=== PATIENT | female | born 1960 | race African-American/Black ===

== ENCOUNTER 2016-09-15 10:55 | Emergency (ER) | payer MEDICARE, OTHER ==
[2016-09-15] VITALS (7 sets, daily range): BP systolic 141–156; BP diastolic 79–98
[~2016-09-15] VITALS: Ht 157.5 cm; Wt 57.5 kg
[~2016-09-15 10:55] MED LIST: AMLO10TA80 PO; BENA40TA3 PO; CALC0.253 PO; CARV3.1242 PO; OMEP20CA10 PO; P20 PO; QUET25TA PO; [UNRECOGNIZED DRUG - CODE] PO
[2016-09-15 11:57] LABS: PARTIAL THROMBOPLASTIN TIME 25.7 sec (24.0-34.0); PROTHROMBIN TIME 10.8 sec
[2016-09-15 12:00] LABS: ALANINE AMINOTRANSFERASE 20 IU/L (13-61); ALBUMIN 3.8 g/dL (3.4-5.0); ANION GAP 19; CALCIUM 9.3 mg/dL (8.5-10.1); CARBON DIOXIDE 24 mEq/L (21-32); CHLORIDE 103 mEq/L (98-107); INDEX HEMOLYSI 1 (1-3); INDEX ICTERIC 1 (1-4); INDEX LIPEMIC 1 (1-3); UREA NITROGEN BLOOD 56 mg/dL (7-21); eGFR 5 mL/min (>60)
[2016-09-15 12:01] LABS: HCG SCREEN NEGATIVE
[2016-09-15 12:03] LABS: BASOPHILS % 1.4 % (0.0-2.0); EOSINOPHILS % 0.9 % (0.0-5.0); HEMATOCRIT. 37.4 % (36.0-48.0); LYMPHOCYTES % 27.4 % (20.0-50.0); MEAN CORPUSCULAR VOLUME 87.7 fL (81.0-99.0); MEAN PLATELET VOLUME 8.2 fl (7.4-10.4); MONOCYTES % 9.8 % (2.0-8.0); NEUTROPHILS % 60.5 % (40.0-76.0); PLATELET 129 x1000/uL (130-400); RED BLOOD CELL COUNT 4.26 mill/uL (4.2-5.4); RED CELL DISTRIBUTION WIDTH 15.9 % (11.6-14.6); WHITE BLOOD COUNT 7.6 x1000/uL (4.5-11.0)
[2016-09-15] MEDS ORDERED: CEFAZOLIN 1000MG PREMIX 50 ML IV NR (14:45)
[2016-09-15] MEDS ORDERED: FENTANYL CITRATE/PF 50MCG/ML 2ML VIAL IV NR (15:22)
== END 2016-09-15 17:36 | disposition home or self-care (01) ==
LOC: ER 12:32
DX: T85.621A Displacement of intraperitoneal dialysis catheter, initial encounter (principal); R00.0 Tachycardia, unspecified; Y82.8 Other medical devices associated with adverse incidents; Y92.098 Other place in other non-institutional residence as the place of occurrence of the external cause; I12.0 Hypertensive chronic kidney disease with stage 5 chronic kidney disease or end stage renal disease; N18.6 End stage renal disease; Z99.2 Dependence on renal dialysis; M32.9 Systemic lupus erythematosus, unspecified
CPT/HCPCS: 36415; 36558; 71010; 76937; 77001; 80053; 84703; 85025; 85610; 85730; 96374; 99285; C1750; C1887

== ENCOUNTER 2016-10-27 05:24 | Inpatient (IN) | payer MEDICARE, OTHER ==
[2016-10-27] VITALS (8 sets, daily range): BP systolic 144–167; BP diastolic 98–117
[~2016-10-27] VITALS: Ht 157.5 cm; Wt 57.6 kg
[2016-10-27] MEDS ORDERED: NITROGLYCERIN OINT 1GM/INCH UDPKT TD ONE (06:30)
[2016-10-27] MEDS ORDERED: FUROSEMIDE 40MG/4ML VIAL IVP ONE (06:30)
[2016-10-27] MEDS ORDERED: ASPIRIN 81MG TABLET PO ONE (06:30)
[2016-10-27 06:43] LABS: PARTIAL THROMBOPLASTIN TIME 31.3 sec (24.0-34.0); PROTHROMBIN TIME 10.4 sec
[2016-10-27 06:44] LABS: EOSINOPHILS % 0.7 % (0.0-5.0); HEMATOCRIT. 22.8 % (36.0-48.0); HEMOGLOBIN. 7.3 g/dL (12.0-16.0); LYMPHOCYTES % 20.6 % (20.0-50.0); MEAN CORPUSCULAR HEMOGLOBIN 27.3 pg (28.0-32.0); MEAN CORPUSCULAR HGB CONC 32.1 g/dL (31.0-37.0); MEAN PLATELET VOLUME 7.9 fl (7.4-10.4); NEUTROPHILS % 68.7 % (40.0-76.0); PLATELET 93 x1000/uL (130-400); RED BLOOD CELL COUNT 2.68 mill/uL (4.2-5.4); RED CELL DISTRIBUTION WIDTH 17.4 % (11.6-14.6); WHITE BLOOD COUNT 5.9 x1000/uL (4.5-11.0)
[2016-10-27 06:52] LABS: ALANINE AMINOTRANSFERASE 23 IU/L (13-61); ALBUMIN 3.1 g/dL (3.4-5.0); ANION GAP 27; CALCIUM 8.5 mg/dL (8.5-10.1); CARBON DIOXIDE 13 mEq/L (21-32); CHLORIDE 102 mEq/L (98-107); INDEX HEMOLYSI 1 (1-3); INDEX ICTERIC 1 (1-4); INDEX LIPEMIC 1 (1-3); TROPONIN I 0.09 ng/mL (0.00-0.04); eGFR 3 mL/min (>60)
[2016-10-27 07:04] LABS: NT PRO B-TYPE NATRIURETIC PEP 62956 pg/mL (5-125)
[2016-10-27 07:11] LABS: UREA NITROGEN BLOOD 131 mg/dL (7-21)
[2016-10-27] MEDS: CARVEDILOL 3.125 MG TABLET PO SCH (20:00)
[2016-10-27] MEDS ORDERED: IPRATROPIUM/ALBUTEROL 0.5-3(2.5)MG/3ML NEB HHN PRN (22:00)
[2016-10-28] VITALS (7 sets, daily range): BP systolic 124–176; BP diastolic 81–113
[2016-10-28] MEDS: IPRATROPIUM/ALBUTEROL 0.5-3(2.5)MG/3ML NEB HHN SCH ×5 (00:25→21:01)
[2016-10-28] MEDS ORDERED: ACETAMINOPHEN 325MG TABLET PO PRN (00:30)
[2016-10-28] MEDS ORDERED: ZOLPIDEM TARTRATE 5MG TABLET PO PRN (00:30)
[2016-10-28] MEDS: GUAIFENESIN-DM 200MG-20MG/10ML UDC PO PRN ×3 (00:48→20:48)
[2016-10-28] MEDS: CLONIDINE 0.1MG TABLET PO PRN ×3 (00:52→20:45)
[2016-10-28] MEDS: ACETAMINOPHEN 325MG TABLET PO PRN ×2 (05:18→20:55)
[2016-10-28] MEDS: OMEPRAZOLE 20MG CAPSULE EXTENDED RELEASE PO SCH (06:53)
[2016-10-28] MEDS: CALCIUM CARBONATE 1250MG TABLET (500MG ELEMENTAL CALCIUM) PO SCH ×2 (08:23→17:31)
[2016-10-28] MEDS: BENAZEPRIL 20MG TABLET PO SCH (08:24)
[2016-10-28] MEDS: AMLODIPINE 10MG TABLET PO SCH (08:24)
[2016-10-28] MEDS: PREDNISONE 5MG TABLET PO SCH (08:24)
[2016-10-28] MEDS: CALCITRIOL 0.25MCG CAPSULE PO SCH (08:24)
[2016-10-28] MEDS: CARVEDILOL 3.125 MG TABLET PO SCH ×2 (08:24→17:31)
[2016-10-28] MEDS ORDERED: CALCIUM GLUCONATE 500 MG PO SCH (09:00)
[2016-10-28] MEDS ORDERED: MEDICATION NOT ON FORMULARY EA (Benazepril Hcl 40 MG) PO SCH (09:00)
[2016-10-28] MEDS ORDERED: DOCUSATE SODIUM 250MG CAPSULE PO SCH (09:10)
[2016-10-28 09:51] LABS: BASOPHILS % 0.5 % (0.0-2.0); EOSINOPHILS % 1.1 % (0.0-5.0); HEMATOCRIT. 29.3 % (36.0-48.0); HEMOGLOBIN. 9.8 g/dL (12.0-16.0); LYMPHOCYTES % 17.1 % (20.0-50.0); MEAN CORPUSCULAR HEMOGLOBIN 28.1 pg (28.0-32.0); MEAN CORPUSCULAR HGB CONC 33.6 g/dL (31.0-37.0); MEAN CORPUSCULAR VOLUME 83.7 fL (81.0-99.0); MEAN PLATELET VOLUME 7.2 fl (7.4-10.4); MONOCYTES % 8.9 % (2.0-8.0); NEUTROPHILS % 72.4 % (40.0-76.0); PLATELET 72 x1000/uL (130-400); RED CELL DISTRIBUTION WIDTH 16.2 % (11.6-14.6); WHITE BLOOD COUNT 6.9 x1000/uL (4.5-11.0)
[2016-10-28 10:12] LABS: CALCIUM 8.3 mg/dL (8.5-10.1); T4 FREE 0.9 ng/dL (0.76-1.46)
[2016-10-29] VITALS: BP 145/82
[2016-10-29] MEDS: IPRATROPIUM/ALBUTEROL 0.5-3(2.5)MG/3ML NEB HHN SCH ×7 (00:25→23:37)
[2016-10-29] MEDS: GUAIFENESIN-DM 200MG-20MG/10ML UDC PO PRN ×3 (03:35→21:21)
[2016-10-29 04:00] VITALS: BP 164/92
[2016-10-29] MEDS: OMEPRAZOLE 20MG CAPSULE EXTENDED RELEASE PO SCH (06:25)
[2016-10-29] MEDS: CLONIDINE 0.1MG TABLET PO PRN ×2 (06:25→13:59)
[2016-10-29 07:47] LABS: BASOPHILS % 0.6 % (0.0-2.0); EOSINOPHILS % 0.8 % (0.0-5.0); HEMATOCRIT. 27.3 % (36.0-48.0); LYMPHOCYTES % 22.2 % (20.0-50.0); MEAN CORPUSCULAR HEMOGLOBIN 28.1 pg (28.0-32.0); MEAN CORPUSCULAR HGB CONC 33.1 g/dL (31.0-37.0); MEAN CORPUSCULAR VOLUME 84.9 fL (81.0-99.0); MEAN PLATELET VOLUME 7.6 fl (7.4-10.4); MONOCYTES % 12.7 % (2.0-8.0); NEUTROPHILS % 63.7 % (40.0-76.0); PLATELET 64 x1000/uL (130-400); RED BLOOD CELL COUNT 3.22 mill/uL (4.2-5.4); RED CELL DISTRIBUTION WIDTH 15.9 % (11.6-14.6); WHITE BLOOD COUNT 6.9 x1000/uL (4.5-11.0)
[2016-10-29 08:00] VITALS: BP 150/95
[2016-10-29 08:08] LABS: CALCIUM 8.9 mg/dL (8.5-10.1)
[2016-10-29] MEDS: BENAZEPRIL 20MG TABLET PO SCH (08:37)
[2016-10-29] MEDS: CARVEDILOL 3.125 MG TABLET PO SCH ×2 (08:37→17:50)
[2016-10-29] MEDS: AMLODIPINE 10MG TABLET PO SCH (08:38)
[2016-10-29] MEDS: CALCIUM CARBONATE 1250MG TABLET (500MG ELEMENTAL CALCIUM) PO SCH ×2 (08:38→17:51)
[2016-10-29] MEDS: CALCITRIOL 0.25MCG CAPSULE PO SCH (08:39)
[2016-10-29] MEDS: PREDNISONE 5MG TABLET PO SCH (08:47)
[2016-10-29 08:50] LABS: PHOSPHORUS 8.2 mg/dL (2.5-4.9)
[2016-10-29 12:00] VITALS: BP 162/105
[2016-10-29] MEDS ORDERED: HEPARIN SODIUM 1,000 UNIT/1ML VIAL IV SCH (13:00)
[2016-10-29 16:00] VITALS: BP 150/105
[2016-10-29 20:00] VITALS: BP 154/92
[2016-10-29] MEDS: ATORVASTATIN CALCIUM 10MG TABLET PO SCH (21:21)
[2016-10-30] VITALS (8 sets, daily range): BP systolic 135–180; BP diastolic 87–108
[2016-10-30] MEDS: GUAIFENESIN-DM 200MG-20MG/10ML UDC PO PRN (01:06)
[2016-10-30] MEDS: CLONIDINE 0.1MG TABLET PO PRN ×2 (01:06→17:41)
[2016-10-30] MEDS: IPRATROPIUM/ALBUTEROL 0.5-3(2.5)MG/3ML NEB HHN SCH ×5 (04:33→19:57)
[2016-10-30 06:17] LABS: BASOPHILS % 0.7 % (0.0-2.0); EOSINOPHILS % 1.4 % (0.0-5.0); HEMATOCRIT. 29.3 % (36.0-48.0); HEMOGLOBIN. 9.8 g/dL (12.0-16.0); LYMPHOCYTES % 23.8 % (20.0-50.0); MEAN CORPUSCULAR HEMOGLOBIN 28.1 pg (28.0-32.0); MEAN CORPUSCULAR HGB CONC 33.5 g/dL (31.0-37.0); MEAN CORPUSCULAR VOLUME 84.1 fL (81.0-99.0); MEAN PLATELET VOLUME 7.7 fl (7.4-10.4); MONOCYTES % 12.3 % (2.0-8.0); NEUTROPHILS % 61.8 % (40.0-76.0); PLATELET 62 x1000/uL (130-400); RED BLOOD CELL COUNT 3.48 mill/uL (4.2-5.4); RED CELL DISTRIBUTION WIDTH 15.8 % (11.6-14.6); WHITE BLOOD COUNT 7.8 x1000/uL (4.5-11.0)
[2016-10-30] MEDS: SEVELAMER CARBONATE 800 MG TABLET PO SCH ×3 (07:50→17:40)
[2016-10-30 08:14] LABS: CALCIUM 8.8 mg/dL (8.5-10.1); PHOSPHORUS 5.5 mg/dL (2.5-4.9)
[2016-10-30] MEDS: FAMOTIDINE 20MG TABLET PO SCH (09:00)
[2016-10-30] MEDS: CARVEDILOL 3.125 MG TABLET PO SCH (09:00)
[2016-10-30] MEDS: CALCIUM CARBONATE 1250MG TABLET (500MG ELEMENTAL CALCIUM) PO SCH ×2 (09:00→17:41)
[2016-10-30] MEDS: BENAZEPRIL 20MG TABLET PO SCH (09:00)
[2016-10-30] MEDS: AMLODIPINE 10MG TABLET PO SCH ×2 (09:00→17:41)
[2016-10-30] MEDS: PREDNISONE 5MG TABLET PO SCH (09:00)
[2016-10-30] MEDS: CALCITRIOL 0.25MCG CAPSULE PO SCH (09:00)
[2016-10-30] MEDS ORDERED: SODIUM CHLORIDE 0.9% 10ML VIAL ONE (14:34)
[2016-10-30] MEDS ORDERED: IOHEXOL-350 100 ML BOTTLE ONE (14:34)
[2016-10-30] MEDS: ACETAMINOPHEN 325MG TABLET PO PRN (19:58)
[2016-10-30] MEDS: CARVEDILOL 6.25 MG TABLET PO SCH (21:07)
[2016-10-30] MEDS: ATORVASTATIN CALCIUM 10MG TABLET PO SCH (21:07)
[2016-10-31] VITALS: BP 143/97
[2016-10-31] MEDS: IPRATROPIUM/ALBUTEROL 0.5-3(2.5)MG/3ML NEB HHN SCH ×5 (00:19→16:00)
[2016-10-31 04:00] VITALS: BP 144/97
[2016-10-31] MEDS: ACETAMINOPHEN 325MG TABLET PO PRN (04:16)
[2016-10-31 08:00] VITALS: BP 146/91
[2016-10-31] MEDS: CALCIUM CARBONATE 1250MG TABLET (500MG ELEMENTAL CALCIUM) PO SCH (08:56)
[2016-10-31] MEDS: PREDNISONE 5MG TABLET PO SCH (08:56)
[2016-10-31] MEDS: CALCITRIOL 0.25MCG CAPSULE PO SCH (08:56)
[2016-10-31] MEDS: SEVELAMER CARBONATE 800 MG TABLET PO SCH ×2 (08:56→13:30)
[2016-10-31] MEDS: FAMOTIDINE 20MG TABLET PO SCH (08:56)
[2016-10-31] MEDS: BENAZEPRIL 20MG TABLET PO SCH (08:57)
[2016-10-31] MEDS: CARVEDILOL 6.25 MG TABLET PO SCH (08:57)
[2016-10-31] MEDS: AMLODIPINE 10MG TABLET PO SCH (09:10)
[2016-10-31 12:00] VITALS: BP 140/93
[2016-10-31 16:00] VITALS: BP 140/93
== END 2016-10-31 17:38 | disposition home or self-care (01) | DRG 291 ==
LOC: ER 05:26 → 6WST 08:51
PROVIDERS: ADMIT Internal Medicine; ATTEND Internal Medicine
PROC: 30233N1 Transfusion of Nonautologous Red Blood Cells into Peripheral Vein, Percutaneous Approach (ICD-10-PCS; 2016-10-27)
PROC: 5A1D60Z (ICD-10-PCS; 2016-10-27)
PROC: 02HV33Z Insertion of Infusion Device into Superior Vena Cava, Percutaneous Approach (ICD-10-PCS; principal; 2016-10-30)
PROC: B548ZZA Ultrasonography of Superior Vena Cava, Guidance (ICD-10-PCS; 2016-10-30)
DX: I13.2 Hypertensive heart and chronic kidney disease with heart failure and with stage 5 chronic kidney disease, or end stage renal disease (principal); I50.43 Acute on chronic combined systolic (congestive) and diastolic (congestive) heart failure; N18.6 End stage renal disease; J96.20 Acute and chronic respiratory failure, unspecified whether with hypoxia or hypercapnia; J44.1 Chronic obstructive pulmonary disease with (acute) exacerbation; E87.2 Acidosis; I42.0 Dilated cardiomyopathy; E87.5 Hyperkalemia; E87.70 Fluid overload, unspecified; D64.9 Anemia, unspecified; I70.203 Unspecified atherosclerosis of native arteries of extremities, bilateral legs; D69.6 Thrombocytopenia, unspecified; E78.5 Hyperlipidemia, unspecified; M32.14 Glomerular disease in systemic lupus erythematosus; I36.1 Nonrheumatic tricuspid (valve) insufficiency; Z79.899 Other long term (current) drug therapy; Z87.891 Personal history of nicotine dependence; Z91.19 Patient's noncompliance with other medical treatment and regimen; Z91.15 Patient's noncompliance with renal dialysis; Z99.2 Dependence on renal dialysis
CPT/HCPCS: 36415; 36569; 71010; 75635; 76937; 77001; 80048; 80053; 82962; 83735; 83880; 83970; 84100; 84439; 84484; 85025; 85610; 85730; 86850; 86900; 86920; 93005; 93306; 93923; 93970; 94640; 94664; 96374; 99285; A4216; C1725; J1644; J1940; J7030; J7040; J7512; J7620; P9016; Q9967

== ENCOUNTER 2016-11-12 08:11 | Day surgery (SDC) | payer MEDICARE, OTHER ==
[~2016-11-12 08:11] MED LIST changes: -AMLO10TA80 PO; -BENA40TA3 PO; -CARV3.1242 PO; -P20 PO; -QUET25TA PO
[2016-11-12] MEDS ORDERED: ATOR10TA PO (09:14)
[2016-11-12] MEDS ORDERED: AMLO10TA80 PO (09:14)
[2016-11-12] MEDS ORDERED: BENA40TA3 PO (09:14)
[2016-11-12] MEDS ORDERED: PRED5TAB48 PO (09:14)
[2016-11-12] MEDS ORDERED: TRIA1KIT13 TP (09:14)
[2016-11-12] MEDS ORDERED: ALBU18HF2 IH (09:14)
[2016-11-12] MEDS ORDERED: CALC668T PO (09:14)
[2016-11-12] MEDS ORDERED: GUAI1TBM14 PO (09:14)
[2016-11-12] MEDS ORDERED: COR3 PO (09:14)
[2016-11-12] MEDS ORDERED: IOHEXOL-300 100 ML BOTTLE ONE (10:39)
[2016-11-12] MEDS ORDERED: MIDAZOLAM HCL 2 MG/2 ML VIAL ONE (10:40)
[2016-11-12] MEDS ORDERED: FENTANYL CITRATE/PF 50MCG/ML 2ML VIAL ONE (10:40)
[2016-11-12] MEDS ORDERED: LIDOCAINE HCL 1% 20ML VIAL (Pyxis) INJ ONE (10:40)
[2016-11-12] MEDS ORDERED: HYDROMORPHONE HCL/PF 2MG/ML (OR) ONE (10:56)
[2016-11-12] MEDS ORDERED: ONDANSETRON HCL 4MG/2ML VIAL IV PRN (11:15)
[2016-11-12] MEDS ORDERED: ACETAMINOPHEN 325MG TABLET PO PRN (11:15)
== END 2016-11-12 16:00 | disposition home or self-care (01) ==
LOC: CCL 08:11
PROVIDERS: ATTEND Specialist
DX: I25.10 Atherosclerotic heart disease of native coronary artery without angina pectoris (principal); J44.9 Chronic obstructive pulmonary disease, unspecified; N18.6 End stage renal disease; I50.9 Heart failure, unspecified; E78.5 Hyperlipidemia, unspecified; I10 Essential (primary) hypertension; I34.0 Nonrheumatic mitral (valve) insufficiency
CPT/HCPCS: 93458; C1760; C1769; C1887; C1893; J1170; J1644; J2250; J3010; J3490; Q9967

== ENCOUNTER 2016-11-26 10:09 | Inpatient (IN) | payer MEDICARE, OTHER ==
[2016-11-26] VITALS (11 sets, daily range): BP systolic 155–175; BP diastolic 74–118
[~2016-11-26] VITALS: Ht 154.9 cm; Wt 62.8 kg
[~2016-11-26 10:09] MED LIST changes: +ALBU18HF2 IH; +AMLO10TA80 PO; +ATOR10TA PO; +BENA40TA3 PO; +CALC668T PO; +COR3 PO; +GUAI1TBM14 PO; +PRED5TAB48 PO; +TRIA1KIT13 TP; -[UNRECOGNIZED DRUG - CODE] PO
[2016-11-26] MEDS ORDERED: HEPARIN SODIUM 1,000 UNIT/1ML VIAL IV ONE (11:31)
[2016-11-26] MEDS ORDERED: IOVERSOL 240MG/ML 100ML BOTTLE IV ONE (11:31)
[2016-11-26] MEDS ORDERED: HYDROMORPHONE HCL/PF 2MG/ML (OR) ONE (12:06)
[2016-11-26] MEDS ORDERED: ASPIRIN 325MG TABLET ONE (12:28)
[2016-11-26] MEDS ORDERED: CLOPIDOGREL 75MG TABLET ONE ×2 (12:28→12:30)
[2016-11-26] MEDS ORDERED: ACETAMINOPHEN 325MG TABLET PO PRN (12:45)
[2016-11-26] MEDS ORDERED: ATROPINE SULFATE 1MG/10ML SYR IV PRN (12:45)
[2016-11-26] MEDS ORDERED: CLOPIDOGREL 75MG TABLET PO ONE (12:45)
[2016-11-26] MEDS: ENALAPRIL 2.5MG/2ML VIAL 2ML IV SCH ×3 (14:33→22:07)
[2016-11-26] MEDS ORDERED: BENAZEPRIL 20MG TABLET PO SCH (17:15)
[2016-11-26] MEDS ORDERED: LOSARTAN POTASSIUM 50 MG TABLET PO SCH (17:15)
[2016-11-26] MEDS ORDERED: ATORVASTATIN CALCIUM 10MG TABLET PO SCH (21:00)
[2016-11-26] MEDS: HYDRALAZINE HCL 25MG TABLET PO SCH (21:07)
[2016-11-26] MEDS ORDERED: GUAIFENESIN 200MG/10ML SUGAR FREE UDC PO PRN (22:00)
[2016-11-27] VITALS (9 sets, daily range): BP systolic 125–185; BP diastolic 48–105
[2016-11-27] MEDS: IPRATROPIUM/ALBUTEROL 0.5-3(2.5)MG/3ML NEB HHN PRN ×3 (00:58→12:24)
[2016-11-27] MEDS: ENALAPRIL 2.5MG/2ML VIAL 2ML IV SCH ×2 (06:16→12:00)
[2016-11-27] MEDS: HYDRALAZINE HCL 25MG TABLET PO SCH ×2 (06:16→14:26)
[2016-11-27 06:26] LABS: BASOPHILS % 0.9 % (0.0-2.0); EOSINOPHILS % 1.1 % (0.0-5.0); HEMATOCRIT. 24.2 % (36.0-48.0); HEMOGLOBIN. 8.1 g/dL (12.0-16.0); LYMPHOCYTES % 22.2 % (20.0-50.0); MEAN CORPUSCULAR HEMOGLOBIN 28.9 pg (28.0-32.0); MEAN PLATELET VOLUME 7.9 fl (7.4-10.4); MONOCYTES % 10.9 % (2.0-8.0); NEUTROPHILS % 64.9 % (40.0-76.0); PLATELET 135 x1000/uL (130-400); RED BLOOD CELL COUNT 2.82 mill/uL (4.2-5.4); RED CELL DISTRIBUTION WIDTH 18.1 % (11.6-14.6)
[2016-11-27] MEDS ORDERED: OMEPRAZOLE 20MG CAPSULE EXTENDED RELEASE PO SCH (06:50)
[2016-11-27] MEDS ORDERED: CLOPIDOGREL 75MG TABLET PO SCH (09:00)
[2016-11-27] MEDS ORDERED: AMLODIPINE 10MG TABLET PO SCH (09:00)
[2016-11-27] MEDS ORDERED: ASPIRIN 325MG TABLET PO SCH (09:00)
[2016-11-27] MEDS ORDERED: CALCITRIOL 0.25MCG CAPSULE PO SCH (09:00)
[2016-11-27] MEDS ORDERED: CARVEDILOL 3.125 MG TABLET PO SCH (09:00)
[2016-11-27] MEDS ORDERED: ENALAPRIL 1.25MG/ML VIAL 1ML IV SCH (14:47)
== END 2016-11-27 15:55 | disposition home or self-care (01) | DRG 270 ==
LOC: CCL 10:09 → 3WST 10:10
PROVIDERS: ADMIT Specialist; ATTEND Specialist
PROC: 04CK3ZZ Extirpation of Matter from Right Femoral Artery, Percutaneous Approach (ICD-10-PCS; principal; 2016-11-26)
PROC: 047K3DZ Dilation of Right Femoral Artery with Intraluminal Device, Percutaneous Approach (ICD-10-PCS; 2016-11-27)
PROC: 5A1D00Z (ICD-10-PCS; 2016-11-27)
PROC: 30233N1 Transfusion of Nonautologous Red Blood Cells into Peripheral Vein, Percutaneous Approach (ICD-10-PCS; 2016-11-27)
DX: I70.201 Unspecified atherosclerosis of native arteries of extremities, right leg (principal); N18.6 End stage renal disease; I42.0 Dilated cardiomyopathy; I12.0 Hypertensive chronic kidney disease with stage 5 chronic kidney disease or end stage renal disease; I69.351 Hemiplegia and hemiparesis following cerebral infarction affecting right dominant side; N25.81 Secondary hyperparathyroidism of renal origin; I73.9 Peripheral vascular disease, unspecified; I25.10 Atherosclerotic heart disease of native coronary artery without angina pectoris; E78.5 Hyperlipidemia, unspecified; K57.90 Diverticulosis of intestine, part unspecified, without perforation or abscess without bleeding; J44.9 Chronic obstructive pulmonary disease, unspecified; I34.0 Nonrheumatic mitral (valve) insufficiency; M32.9 Systemic lupus erythematosus, unspecified; I27.2 Other secondary pulmonary hypertension; D53.9 Nutritional anemia, unspecified; Z98.891 History of uterine scar from previous surgery; Z87.891 Personal history of nicotine dependence; Z99.2 Dependence on renal dialysis; Z79.899 Other long term (current) drug therapy
CPT/HCPCS: 36415; 37227; 75710; 80048; 85025; 85347; 86850; 86900; 86920; 94640; 94664; C1725; C1760; C1769; C1885; C1893; C1894; J1170; J1644; J3490; J7040; J7050; J7620; L1830; P9016; Q9967

== ENCOUNTER → 2017-03-25 | Day surgery (SDC) | payer MEDICARE, OTHER ==
[~2017-03-25] VITALS: Ht 160 cm; Wt 58.0 kg
[~2017-03-25] MED LIST changes: +ASPI-1159 PO; +CLOP75TA16 PO; +CODE473S5 PO; +QUET25TA PO
[2017-03-25 11:33] LABS: HEMATOCRIT. 38.1 % (36.0-48.0); HEMOGLOBIN. 12.4 g/dL (12.0-16.0); MEAN CORPUSCULAR HEMOGLOBIN 29.1 pg (28.0-32.0); MEAN CORPUSCULAR VOLUME 89.3 fL (81.0-99.0); PLATELET 120 x1000/uL (130-400); RED BLOOD CELL COUNT 4.27 mill/uL (4.2-5.4); RED CELL DISTRIBUTION WIDTH 17.6 % (11.6-14.6)
[2017-03-25 11:38] LABS: INR 1.2; PARTIAL THROMBOPLASTIN TIME 25.9 sec (23.4-31.0)
[2017-03-25 12:35] LABS: PLATELET ESTIMATE SLIGHTLY DECREASED
== END | disposition home or self-care (01) ==
LOC: OR 10:14
PROVIDERS: ATTEND Surgery Vascular Surgery
DX: N18.6 End stage renal disease (principal); Z53.9 Procedure and treatment not carried out, unspecified reason
CPT/HCPCS: 36415; 80048; 85025; 85610; 85730; 93005

== ENCOUNTER 2017-03-27 15:39 | Inpatient (IN) | payer MEDICARE, OTHER ==
[2017-03-27] VITALS: BP 164/100
[~2017-03-27] VITALS: Ht 157.5 cm; Wt 57.6 kg
[2017-03-27] MEDS ORDERED: METHYLPREDNISOLONE SOD SUCC 125 MG/2 ML VIAL IV STA (16:12)
[2017-03-27] MEDS ORDERED: IPRATROPIUM BROMIDE (0.02%) 0.5MG/2.5ML NEB HHN STA (16:12)
[2017-03-27] MEDS ORDERED: ALBUTEROL (0.083%) 2.5MG/3ML NEB HHN STA (16:12)
[2017-03-27 18:34] LABS: HEMATOCRIT. 38.3 % (36.0-48.0); HEMOGLOBIN. 12.3 g/dL (12.0-16.0); MEAN CORPUSCULAR HEMOGLOBIN 29.3 pg (28.0-32.0); MEAN PLATELET VOLUME 10.4 fl (7.4-10.4); PLATELET 117 x1000/uL (130-400); RED BLOOD CELL COUNT 4.21 mill/uL (4.2-5.4); RED CELL DISTRIBUTION WIDTH 17.9 % (11.6-14.6)
[2017-03-27 18:37] LABS: CHLORIDE 102 mEq/L (98-107)
[2017-03-27 18:39] LABS: INR 1.3; PROTHROMBIN TIME 13.2 sec (9.4-11.6)
[2017-03-27 18:42] LABS: CARBON DIOXIDE 26 mEq/L (21-32)
[2017-03-27] MEDS ORDERED: FUROSEMIDE 40MG/4ML VIAL IVP ONE (19:00)
[2017-03-27 19:18] LABS: NUCLEATED RED BLOOD CELLS 1 /100 WBC; PLATELET ESTIMATE DECREASED
[2017-03-27] MEDS ORDERED: ASPIRIN 81MG TABLET PO ONE (20:15)
[2017-03-27] MEDS ORDERED: NITROGLYCERIN 0.1MG/HR PATCH TOP ONE (20:15)
[2017-03-28] VITALS: BP 164/100
[2017-03-28] MEDS ORDERED: ACETAMINOPHEN 325MG TABLET PO PRN (01:15)
[2017-03-28] MEDS ORDERED: MEDICATION NOT ON FORMULARY EA (Benazepril Hcl 40 MG) PO SCH (01:30)
[2017-03-28] MEDS ORDERED: GUAIFENESIN-DM 200MG-20MG/10ML UDC PO PRN (01:45)
[2017-03-28] MEDS: IPRATROPIUM/ALBUTEROL 0.5-3(2.5)MG/3ML NEB HHN SCH ×5 (02:02→21:18)
[2017-03-28] MEDS: AMLODIPINE 10MG TABLET PO SCH ×2 (02:10→09:26)
[2017-03-28] MEDS: BENAZEPRIL 20MG TABLET PO SCH ×2 (02:10→09:26)
[2017-03-28 04:00] VITALS: BP 155/99
[2017-03-28] MEDS ORDERED: VANCOMYCIN 1 G PREMIX 200 ML IV NR (04:00)
[2017-03-28] MEDS: METHYLPREDNISOLONE SOD SUCC 125 MG/2 ML VIAL IV SCH ×4 (05:01→23:58)
[2017-03-28 08:30] VITALS: BP 135/100
[2017-03-28] MEDS ORDERED: MEDICATION NOT ON FORMULARY EA (Prednisone 5 MG) PO SCH (09:00)
[2017-03-28] MEDS: ASPIRIN 81MG EC TABLET PO SCH (09:25)
[2017-03-28] MEDS: QUETIAPINE FUMARATE 25MG TABLET PO SCH (09:25)
[2017-03-28] MEDS: SEVELAMER CARBONATE 800 MG TABLET PO SCH ×3 (09:25→17:41)
[2017-03-28] MEDS: OMEPRAZOLE 20MG CAPSULE EXTENDED RELEASE PO SCH (09:26)
[2017-03-28] MEDS: HYDROXYCHLOROQUINE SULFATE 200MG TABLET PO SCH ×2 (09:27→17:41)
[2017-03-28] MEDS: PREDNISONE 5MG TABLET PO SCH (09:27)
[2017-03-28] MEDS: CARVEDILOL 3.125 MG TABLET PO SCH (09:29)
[2017-03-28 12:00] VITALS: BP 151/94
[2017-03-28 16:00] VITALS: BP 137/87
[2017-03-28 20:00] VITALS: BP 116/82
[2017-03-29] VITALS: BP 132/88
[2017-03-29] MEDS: IPRATROPIUM/ALBUTEROL 0.5-3(2.5)MG/3ML NEB HHN SCH ×5 (02:02→21:10)
[2017-03-29 04:00] VITALS: BP 128/81
[2017-03-29] MEDS: METHYLPREDNISOLONE SOD SUCC 125 MG/2 ML VIAL IV SCH ×3 (06:07→17:41)
[2017-03-29 07:44] LABS: HEMATOCRIT. 34.2 % (36.0-48.0); HEMOGLOBIN. 11.2 g/dL (12.0-16.0); MEAN CORPUSCULAR HEMOGLOBIN 29.4 pg (28.0-32.0); MEAN PLATELET VOLUME 10.3 fl (7.4-10.4); PLATELET 107 x1000/uL (130-400)
[2017-03-29 08:00] VITALS: BP 130/92
[2017-03-29] MEDS: SEVELAMER CARBONATE 800 MG TABLET PO SCH ×3 (08:12→17:41)
[2017-03-29] MEDS: BENAZEPRIL 20MG TABLET PO SCH (08:13)
[2017-03-29] MEDS: OMEPRAZOLE 20MG CAPSULE EXTENDED RELEASE PO SCH (08:13)
[2017-03-29] MEDS: CARVEDILOL 3.125 MG TABLET PO SCH (08:14)
[2017-03-29] MEDS: ASPIRIN 81MG EC TABLET PO SCH (08:14)
[2017-03-29] MEDS: HYDROXYCHLOROQUINE SULFATE 200MG TABLET PO SCH ×2 (08:14→17:41)
[2017-03-29] MEDS: PREDNISONE 5MG TABLET PO SCH (08:14)
[2017-03-29] MEDS: AMLODIPINE 10MG TABLET PO SCH (08:15)
[2017-03-29 08:45] LABS: PHOSPHORUS 6.3 mg/dL (2.5-4.9)
[2017-03-29 12:00] VITALS: BP 128/80
[2017-03-29] MEDS ORDERED: VANCOMYCIN 500 MG PREMIX 100 ML IV SCH (12:00)
[2017-03-29 12:32] LABS: PLATELET ESTIMATE SLIGHTLY DECREASED
[2017-03-29] MEDS ORDERED: SEVELAMER CARBONATE 800 MG TABLET PO SCH (13:10)
[2017-03-29] MEDS: FOLIC ACID/VITAMIN B COMP W-C TABLET PO SCH (14:33)
[2017-03-29 16:00] VITALS: BP 135/85
[2017-03-29 20:00] VITALS: BP 107/76
[2017-03-30] VITALS: BP 120/87
[2017-03-30] MEDS: METHYLPREDNISOLONE SOD SUCC 125 MG/2 ML VIAL IV SCH ×2 (00:19→06:58)
[2017-03-30] MEDS: IPRATROPIUM/ALBUTEROL 0.5-3(2.5)MG/3ML NEB HHN SCH ×5 (01:02→20:28)
[2017-03-30 04:00] VITALS: BP 116/92
[2017-03-30 08:00] VITALS: BP 124/89
[2017-03-30] MEDS: OMEPRAZOLE 20MG CAPSULE EXTENDED RELEASE PO SCH (08:54)
[2017-03-30] MEDS: FOLIC ACID/VITAMIN B COMP W-C TABLET PO SCH (08:54)
[2017-03-30] MEDS: QUETIAPINE FUMARATE 25MG TABLET PO SCH (08:54)
[2017-03-30] MEDS: SEVELAMER CARBONATE 800 MG TABLET PO SCH ×3 (08:54→18:06)
[2017-03-30] MEDS: ASPIRIN 81MG EC TABLET PO SCH (08:54)
[2017-03-30] MEDS: CARVEDILOL 3.125 MG TABLET PO SCH (08:55)
[2017-03-30] MEDS: PREDNISONE 5MG TABLET PO SCH (08:55)
[2017-03-30] MEDS: AMLODIPINE 10MG TABLET PO SCH (08:55)
[2017-03-30] MEDS: BENAZEPRIL 20MG TABLET PO SCH (09:12)
[2017-03-30] MEDS: HYDROXYCHLOROQUINE SULFATE 200MG TABLET PO SCH ×2 (11:13→18:06)
[2017-03-30 12:00] VITALS: BP 113/76
[2017-03-30 16:00] VITALS: BP 122/79
[2017-03-30] MEDS: THROAT LOZENGES-BENZOCAINE/MENTH/CETYLPYRD CL LOZENGES MM PRN (19:59)
[2017-03-30 20:00] VITALS: BP 119/79
[2017-03-30] MEDS: METHYLPREDNISOLONE SOD SUCC 40 MG/ML VIAL IV SCH (20:01)
[2017-03-31] VITALS: BP 125/81
[2017-03-31] MEDS: IPRATROPIUM/ALBUTEROL 0.5-3(2.5)MG/3ML NEB HHN SCH ×4 (00:48→12:46)
[2017-03-31 04:00] VITALS: BP 122/79
[2017-03-31 05:51] LABS: HEMATOCRIT. 35.7 % (36.0-48.0); HEMOGLOBIN. 11.7 g/dL (12.0-16.0); MEAN CORPUSCULAR HEMOGLOBIN 29.4 pg (28.0-32.0); MEAN CORPUSCULAR VOLUME 89.4 fL (81.0-99.0); MEAN PLATELET VOLUME 10.7 fl (7.4-10.4); PLATELET 106 x1000/uL (130-400); RED BLOOD CELL COUNT 3.99 mill/uL (4.2-5.4); RED CELL DISTRIBUTION WIDTH 18.2 % (11.6-14.6)
[2017-03-31] MEDS: THROAT LOZENGES-BENZOCAINE/MENTH/CETYLPYRD CL LOZENGES MM PRN ×2 (06:06→12:17)
[2017-03-31] MEDS ORDERED: HEPARIN SODIUM 1,000 UNIT/1ML VIAL IV NR (07:15)
[2017-03-31 08:00] VITALS: BP 139/77
[2017-03-31] MEDS: OMEPRAZOLE 20MG CAPSULE EXTENDED RELEASE PO SCH (09:52)
[2017-03-31] MEDS: BENAZEPRIL 20MG TABLET PO SCH (09:52)
[2017-03-31] MEDS: FOLIC ACID/VITAMIN B COMP W-C TABLET PO SCH (09:53)
[2017-03-31] MEDS: AMLODIPINE 10MG TABLET PO SCH (09:53)
[2017-03-31] MEDS: ASPIRIN 81MG EC TABLET PO SCH (09:54)
[2017-03-31] MEDS: CARVEDILOL 3.125 MG TABLET PO SCH (09:54)
[2017-03-31] MEDS: METHYLPREDNISOLONE SOD SUCC 40 MG/ML VIAL IV SCH (09:54)
[2017-03-31] MEDS: SEVELAMER CARBONATE 800 MG TABLET PO SCH ×2 (09:54→14:15)
[2017-03-31] MEDS: HYDROXYCHLOROQUINE SULFATE 200MG TABLET PO SCH (09:54)
[2017-03-31] MEDS: PREDNISONE 5MG TABLET PO SCH (09:54)
[2017-03-31 12:00] VITALS: BP 141/72
[2017-03-31 14:57] VITALS: BP 141/72
[2017-03-31] MEDS ORDERED: VANCOMYCIN 1 G PREMIX 200 ML IV NR (15:00)
[2017-03-31 17:05] LABS: PLATELET ESTIMATE DECREASED
== END 2017-03-31 15:05 | disposition home or self-care (01) | DRG 291 ==
LOC: ER 15:46 → 7WST 19:16 → EDBEDREQTM 19:25 → EDBEDREQSVC 19:25 → EDBEDREQ 19:25 → ENRESERV 22:22
PROVIDERS: ADMIT Internal Medicine; ATTEND Internal Medicine
DX: I13.2 Hypertensive heart and chronic kidney disease with heart failure and with stage 5 chronic kidney disease, or end stage renal disease (principal); I50.23 Acute on chronic systolic (congestive) heart failure; J96.20 Acute and chronic respiratory failure, unspecified whether with hypoxia or hypercapnia; I47.2 Ventricular tachycardia; E74.01 von Gierke disease; N18.6 End stage renal disease; A04.7 Enterocolitis due to Clostridium difficile; J44.0 Chronic obstructive pulmonary disease with (acute) lower respiratory infection; I27.2 Other secondary pulmonary hypertension; E46 Unspecified protein-calorie malnutrition; G81.91 Hemiplegia, unspecified affecting right dominant side; J44.1 Chronic obstructive pulmonary disease with (acute) exacerbation; A53.9 Syphilis, unspecified; I42.0 Dilated cardiomyopathy; M32.9 Systemic lupus erythematosus, unspecified; J20.9 Acute bronchitis, unspecified; D64.9 Anemia, unspecified; E78.5 Hyperlipidemia, unspecified; F17.210 Nicotine dependence, cigarettes, uncomplicated; F32.9 Major depressive disorder, single episode, unspecified; I73.9 Peripheral vascular disease, unspecified; I34.0 Nonrheumatic mitral (valve) insufficiency; I49.3 Ventricular premature depolarization; Z79.82 Long term (current) use of aspirin; Z79.899 Other long term (current) drug therapy; Z86.19 Personal history of other infectious and parasitic diseases; Z91.19 Patient's noncompliance with other medical treatment and regimen; Z95.5 Presence of coronary angioplasty implant and graft; Z99.2 Dependence on renal dialysis; Z68.23 Body mass index [BMI] 23.0-23.9, adult
CPT/HCPCS: 36415; 71010; 80048; 80053; 80202; 83605; 83880; 84100; 84132; 84484; 85025; 85610; 85730; 87040; 93005; 93306; 93970; 94640; 94644; 96374; 99285; J1644; J2920; J2930; J3370; J7030; J7050; J7512; J7611; J7620

== ENCOUNTER 2017-04-20 15:23 | Inpatient (IN) | payer MEDICARE, OTHER ==
[~2017-04-20] VITALS: Ht 154.9 cm; Wt 58.5 kg
[2017-04-20] MEDS ORDERED: CLONIDINE 0.1MG TABLET PO PRN (16:15)
[2017-04-20] MEDS ORDERED: DIPHENHYDRAMINE 50MG/ML VIAL IV PRN (16:15)
[2017-04-20] MEDS ORDERED: DOCUSATE SODIUM 100MG CAPSULE PO PRN (16:15)
[2017-04-20] MEDS ORDERED: ONDANSETRON HCL 4MG/2ML VIAL IV PRN (16:15)
[2017-04-20] MEDS ORDERED: IPRATROPIUM/ALBUTEROL 0.5-3(2.5)MG/3ML NEB INH PRN (16:15)
[2017-04-20] MEDS ORDERED: ACETAMINOPHEN 325MG TABLET PO PRN (16:15)
[2017-04-20] MEDS ORDERED: LORAZEPAM 0.5MG TABLET PO PRN (16:15)
[2017-04-20] MEDS ORDERED: GUAIFENESIN 200MG/10ML SUGAR FREE UDC PO PRN (16:15)
[2017-04-20] MEDS ORDERED: HYDROMORPHONE HCL/PF 2MG/ML CPJ IV PRN (16:15)
[2017-04-20 16:21] VITALS: BP 142/94
[2017-04-20 16:44] VITALS: BP 146/94
[2017-04-20] MEDS ORDERED: CLONIDINE 0.2MG TABLET PO PRN (16:45)
[2017-04-20] MEDS ORDERED: METHYLPREDNISOLONE SOD SUCC 40 MG/ML VIAL IV SCH (17:00)
[2017-04-20 18:35] LABS: BASOPHILS % 1.7 % (0.0-2.0); EOSINOPHILS % 0.4 % (0.0-5.0); HEMATOCRIT. 42.4 % (36.0-48.0); LYMPHOCYTES % 18.8 % (20.0-50.0); MEAN CORPUSCULAR HEMOGLOBIN 29.7 pg (28.0-32.0); MEAN CORPUSCULAR VOLUME 89.9 fL (81.0-99.0); MEAN PLATELET VOLUME 10.6 fl (7.4-10.4); MONOCYTES % 4.7 % (2.0-8.0); NEUTROPHILS % 74.4 % (40.0-76.0); PLATELET 133 x1000/uL (130-400); RED BLOOD CELL COUNT 4.72 mill/uL (4.2-5.4); RED CELL DISTRIBUTION WIDTH 17.8 % (11.6-14.6)
[2017-04-20 20:00] VITALS: BP 149/95
[2017-04-20] MEDS: ATORVASTATIN CALCIUM 20MG TABLET PO SCH (21:19)
[2017-04-20] MEDS: AMLODIPINE 2.5MG TABLET PO SCH (21:19)
[2017-04-20] MEDS: SODIUM CHLORIDE 0.9% INJ 3ML FLUSH IVF SCH (21:21)
[2017-04-20] MEDS: IPRATROPIUM/ALBUTEROL 0.5-3(2.5)MG/3ML NEB HHN SCH (21:31)
[2017-04-20 23:43] LABS: CARBON DIOXIDE 22 mEq/L (21-32); CHLORIDE 106 mEq/L (98-107)
[2017-04-20 23:48] LABS: CREATINE KINASE MB FRACTION 3.7 ng/mL (0.5-3.6); TROPONIN I 0.08 ng/mL (0.00-0.04)
[2017-04-21] VITALS (7 sets, daily range): BP systolic 134–190; BP diastolic 70–108
[2017-04-21] MEDS: METHYLPREDNISOLONE SOD SUCC 40 MG/ML VIAL IV SCH ×3 (00:34→14:09)
[2017-04-21] MEDS: IPRATROPIUM/ALBUTEROL 0.5-3(2.5)MG/3ML NEB HHN SCH ×6 (02:00→21:05)
[2017-04-21 06:24] LABS: HEMATOCRIT. 35.3 % (36.0-48.0); HEMOGLOBIN. 11.6 g/dL (12.0-16.0); MEAN CORPUSCULAR HEMOGLOBIN 29.4 pg (28.0-32.0); MEAN CORPUSCULAR VOLUME 89.3 fL (81.0-99.0); MEAN PLATELET VOLUME 10.9 fl (7.4-10.4); PLATELET 122 x1000/uL (130-400); RED BLOOD CELL COUNT 3.96 mill/uL (4.2-5.4); RED CELL DISTRIBUTION WIDTH 17.6 % (11.6-14.6)
[2017-04-21] MEDS: SODIUM CHLORIDE 0.9% INJ 3ML FLUSH IVF SCH ×3 (06:40→21:59)
[2017-04-21 07:40] LABS: CARBON DIOXIDE 21 mEq/L (21-32); CHLORIDE 105 mEq/L (98-107); CREATINE KINASE MB FRACTION 3.9 ng/mL (0.5-3.6); HDL CHOLESTEROL 58 mg/dL (40-59); LDL CHOLESTEROL 69 mg/dL (5-100); TROPONIN I 0.08 ng/mL (0.00-0.04)
[2017-04-21] MEDS: AMLODIPINE 2.5MG TABLET PO SCH (09:52)
[2017-04-21] MEDS: ENOXAPARIN 30MG/0.3ML SYR SUBCUT SCH (09:53)
[2017-04-21] MEDS: ASPIRIN 81MG EC TABLET PO SCH (09:54)
[2017-04-21] MEDS ORDERED: HEPARIN SODIUM 1,000 UNIT/1ML VIAL IV STA (14:44)
[2017-04-21] MEDS ORDERED: HEPARIN SODIUM 1,000 UNIT/1ML VIAL IV NR (14:59)
[2017-04-21 16:41] LABS: PLATELET ESTIMATE DECREASED
[2017-04-21] MEDS: LISINOPRIL 20MG TABLET PO SCH ×2 (18:03→21:58)
[2017-04-21] MEDS: AMLODIPINE 5MG TABLET PO SCH (21:58)
[2017-04-21] MEDS: ATORVASTATIN CALCIUM 20MG TABLET PO SCH (21:59)
[2017-04-22] VITALS: BP 136/87
[2017-04-22] MEDS: IPRATROPIUM/ALBUTEROL 0.5-3(2.5)MG/3ML NEB HHN SCH ×6 (00:43→20:26)
[2017-04-22] MEDS ORDERED: METHYLPREDNISOLONE SOD SUCC 40 MG/ML VIAL IV SCH (02:00)
[2017-04-22 04:00] VITALS: BP 134/91
[2017-04-22] MEDS: SODIUM CHLORIDE 0.9% INJ 3ML FLUSH IVF SCH ×3 (06:00→21:14)
[2017-04-22 06:08] LABS: BASOPHILS % 0.2 % (0.0-2.0); HEMATOCRIT. 34.2 % (36.0-48.0); HEMOGLOBIN. 11.1 g/dL (12.0-16.0); MEAN CORPUSCULAR HEMOGLOBIN 29.1 pg (28.0-32.0); MEAN CORPUSCULAR VOLUME 90.1 fL (81.0-99.0); MEAN PLATELET VOLUME 10.4 fl (7.4-10.4); MONOCYTES % 5.6 % (2.0-8.0); NEUTROPHILS % 83.2 % (40.0-76.0); PLATELET 143 x1000/uL (130-400); RED CELL DISTRIBUTION WIDTH 17.9 % (11.6-14.6)
[2017-04-22 06:25] LABS: CARBON DIOXIDE 19 mEq/L (21-32); CHLORIDE 106 mEq/L (98-107)
[2017-04-22 08:00] VITALS: BP 134/95
[2017-04-22] MEDS: ASPIRIN 81MG EC TABLET PO SCH (08:33)
[2017-04-22] MEDS: AMLODIPINE 5MG TABLET PO SCH ×2 (08:34→21:10)
[2017-04-22] MEDS: LISINOPRIL 20MG TABLET PO SCH ×2 (08:34→21:10)
[2017-04-22] MEDS: ENOXAPARIN 30MG/0.3ML SYR SUBCUT SCH (08:37)
[2017-04-22 12:00] VITALS: BP 118/77
[2017-04-22 16:00] VITALS: BP 137/84
[2017-04-22 20:00] VITALS: BP 131/82
[2017-04-22] MEDS: ATORVASTATIN CALCIUM 20MG TABLET PO SCH (21:10)
[2017-04-23] VITALS: BP 126/78
[2017-04-23] MEDS: IPRATROPIUM/ALBUTEROL 0.5-3(2.5)MG/3ML NEB HHN SCH ×6 (00:55→20:37)
[2017-04-23 04:00] VITALS: BP 113/74
[2017-04-23] MEDS: SODIUM CHLORIDE 0.9% INJ 3ML FLUSH IVF SCH ×3 (05:22→21:21)
[2017-04-23 08:00] VITALS: BP 125/79
[2017-04-23] MEDS: LISINOPRIL 20MG TABLET PO SCH ×2 (09:00→21:00)
[2017-04-23] MEDS: AMLODIPINE 5MG TABLET PO SCH ×2 (09:00→21:00)
[2017-04-23] MEDS: ASPIRIN 81MG EC TABLET PO SCH (09:11)
[2017-04-23] MEDS: ENOXAPARIN 30MG/0.3ML SYR SUBCUT SCH (09:11)
[2017-04-23] MEDS: PREDNISONE 20MG TABLET PO SCH (09:15)
[2017-04-23 12:00] VITALS: BP 128/78
[2017-04-23 16:00] VITALS: BP 128/80
[2017-04-23] MEDS ORDERED: HEPARIN SODIUM 1,000 UNIT/1ML VIAL IV NR (18:30)
[2017-04-23 20:00] VITALS: BP 95/65
[2017-04-23] MEDS: GUAIFENESIN 600MG ER TABLET PO SCH (21:17)
[2017-04-23] MEDS: ATORVASTATIN CALCIUM 20MG TABLET PO SCH (21:17)
[2017-04-24] VITALS: BP 137/80
[2017-04-24] MEDS: IPRATROPIUM/ALBUTEROL 0.5-3(2.5)MG/3ML NEB HHN SCH ×3 (00:14→11:54)
[2017-04-24 08:00] VITALS: BP 139/86
[2017-04-24] MEDS: PREDNISONE 20MG TABLET PO SCH (09:05)
[2017-04-24] MEDS: GUAIFENESIN 600MG ER TABLET PO SCH (09:05)
[2017-04-24] MEDS: ASPIRIN 81MG EC TABLET PO SCH (09:05)
[2017-04-24] MEDS: ENOXAPARIN 30MG/0.3ML SYR SUBCUT SCH (09:07)
[2017-04-24] MEDS: AMLODIPINE 5MG TABLET PO SCH (09:31)
[2017-04-24] MEDS: LISINOPRIL 20MG TABLET PO SCH (09:32)
[2017-04-24 12:00] VITALS: BP 128/78
[2017-04-24 13:30] VITALS: BP 128/78
[2017-04-24] MEDS: SODIUM CHLORIDE 0.9% INJ 3ML FLUSH IVF SCH (13:53)
== END 2017-04-24 14:30 | disposition home or self-care (01) | DRG 291 ==
LOC: 6WST 15:23
PROVIDERS: ADMIT Internal Medicine; ATTEND Internal Medicine
PROC: 5A1D70Z Performance of Urinary Filtration, Intermittent, Less than 6 Hours Per Day (ICD-10-PCS; principal; 2017-04-21)
DX: I13.2 Hypertensive heart and chronic kidney disease with heart failure and with stage 5 chronic kidney disease, or end stage renal disease (principal); I50.23 Acute on chronic systolic (congestive) heart failure; J96.20 Acute and chronic respiratory failure, unspecified whether with hypoxia or hypercapnia; I47.2 Ventricular tachycardia; I27.20 Pulmonary hypertension, unspecified; M32.14 Glomerular disease in systemic lupus erythematosus; I42.0 Dilated cardiomyopathy; N18.6 End stage renal disease; I36.1 Nonrheumatic tricuspid (valve) insufficiency; J44.1 Chronic obstructive pulmonary disease with (acute) exacerbation; N25.81 Secondary hyperparathyroidism of renal origin; I47.1 Supraventricular tachycardia; D64.9 Anemia, unspecified; E78.00 Pure hypercholesterolemia, unspecified; I73.9 Peripheral vascular disease, unspecified; K20.9 Esophagitis, unspecified; K29.70 Gastritis, unspecified, without bleeding; Z72.0 Tobacco use; Z79.02 Long term (current) use of antithrombotics/antiplatelets; Z79.899 Other long term (current) drug therapy; Z86.19 Personal history of other infectious and parasitic diseases; Z91.19 Patient's noncompliance with other medical treatment and regimen; Z95.5 Presence of coronary angioplasty implant and graft; Z99.2 Dependence on renal dialysis; F32.9 Major depressive disorder, single episode, unspecified; J45.909 Unspecified asthma, uncomplicated; Z82.49 Family history of ischemic heart disease and other diseases of the circulatory system; I34.0 Nonrheumatic mitral (valve) insufficiency
CPT/HCPCS: 36415; 71010; 78582; 80053; 80061; 82553; 83735; 84443; 84484; 85025; 85379; 93005; 93970; 94640; 94664; A9558; C1893; J1170; J1200; J1644; J1650; J2920; J7030; J7512; J7620

== ENCOUNTER 2017-06-20 09:53 | Emergency (ER) | payer MEDICARE, OTHER ==
[~2017-06-20] VITALS: Ht 160 cm; Wt 57.0 kg
[~2017-06-20 09:53] MED LIST changes: -COR3 PO; -GUAI1TBM14 PO
[2017-06-20 10:59] LABS: HEMATOCRIT. 37.9 % (36.0-48.0); HEMOGLOBIN. 12.2 g/dL (12.0-16.0); MEAN CORPUSCULAR HEMOGLOBIN 30.8 pg (28.0-32.0); MEAN CORPUSCULAR VOLUME 95.9 fL (81.0-99.0); MEAN PLATELET VOLUME 8.4 fl (7.4-10.4); PLATELET 139 x1000/uL (130-400); RED BLOOD CELL COUNT 3.95 mill/uL (4.2-5.4); RED CELL DISTRIBUTION WIDTH 18.6 % (11.6-14.6)
[2017-06-20 11:02] LABS: PARTIAL THROMBOPLASTIN TIME 24.4 sec (23.4-31.0); PROTHROMBIN TIME 10.8 sec (9.4-11.6)
[2017-06-20 11:17] LABS: CARBON DIOXIDE 25 mEq/L (21-32); CHLORIDE 98 mEq/L (98-107)
[2017-06-20 12:00] LABS: NUCLEATED RED BLOOD CELLS 1 /100 WBC; PLATELET ESTIMATE NORMAL
[2017-06-20 12:30] VITALS: BP 147/88
== END 2017-06-20 13:27 | disposition home or self-care (01) ==
LOC: ER 09:53
DX: R04.0 Epistaxis (principal); I50.9 Heart failure, unspecified; J44.9 Chronic obstructive pulmonary disease, unspecified; M32.9 Systemic lupus erythematosus, unspecified; N18.6 End stage renal disease; Z79.82 Long term (current) use of aspirin; Z95.0 Presence of cardiac pacemaker; Z99.2 Dependence on renal dialysis; Z98.890 Other specified postprocedural states
CPT/HCPCS: 30901; 36415; 80053; 85025; 85610; 85730; 93005; 99285

== ENCOUNTER 2018-01-20 09:44 | Day surgery (SDC) | payer MEDICARE, OTHER ==
[~2018-01-20] VITALS: Ht 160 cm; Wt 60.8 kg
[2018-01-20 10:47] LABS: HEMATOCRIT. 36.7 % (36.0-48.0); HEMOGLOBIN. 12.3 g/dL (12.0-16.0); MEAN CORPUSCULAR HEMOGLOBIN 29.7 pg (28.0-32.0); MEAN CORPUSCULAR VOLUME 88.6 fL (81.0-99.0); MEAN PLATELET VOLUME 8.2 fl (7.4-10.4); PLATELET 162 x1000/uL (130-400); RED BLOOD CELL COUNT 4.15 mill/uL (4.2-5.4); RED CELL DISTRIBUTION WIDTH 14.1 % (11.6-14.6)
[2018-01-20 10:55] LABS: INR 1.1; PARTIAL THROMBOPLASTIN TIME 26.1 sec (23.4-31.0); PROTHROMBIN TIME 11.1 sec (9.4-11.6)
[2018-01-20 11:26] LABS: PLATELET ESTIMATE NORMAL
[2018-01-20] MEDS ORDERED: NORMAL SALINE 0.9% 10 ML SYR ONE (11:47)
[2018-01-20] MEDS ORDERED: HEPARIN SODIUM 1,000 UNIT/1ML VIAL IV ONE (11:47)
[2018-01-20] MEDS ORDERED: BACITRACIN ZINC 15GM TUBE TOP ONE (11:47)
[2018-01-20] MEDS ORDERED: BUPIVACAINE HCL/PF 0.5% (5MG/ML) 10ML ONE ×2 (11:47→14:09)
[2018-01-20] MEDS ORDERED: BACITRACIN 50,000 UNITS/VIAL ONE (11:48)
[2018-01-20] MEDS ORDERED: LIDOCAINE HCL/PF 1% 10 MG/ML 5ML VIAL ONE ×2 (11:48→14:09)
[2018-01-20] MEDS ORDERED: THROMBIN (BOVINE) 5000 UNITS/VIAL TOP ONE (12:20)
[2018-01-20] MEDS ORDERED: GELATIN SPONGE,COMPRESSED SZ 100 ONE (12:20)
[2018-01-20] MEDS ORDERED: PAPAVERINE HCL 30 MG/ML 2ML IV ONE (13:52)
[2018-01-20] MEDS ORDERED: HYDROCODONE/ACETAMINOPHEN 5/325MG TABLET PO PRN ×2 (14:45→15:52)
[2018-01-20] MEDS ORDERED: ONDANSETRON HCL 4MG/2ML VIAL IV PRN ×2 (14:45→15:00)
[2018-01-20] MEDS ORDERED: SODIUM CHLORIDE 0.9% 1,000 ML IV ONE (14:49)
[2018-01-20] MEDS ORDERED: HYDROMORPHONE HCL/PF 2MG/ML CPJ IV PRN (15:00)
[2018-01-20] MEDS ORDERED: SODIUM CHLORIDE 0.9% INJ 3ML FLUSH IVF SCH (22:00)
== END 2018-01-20 16:45 | disposition home or self-care (01) ==
LOC: OR 09:44
PROVIDERS: ATTEND Surgery Vascular Surgery
DX: N18.6 End stage renal disease (principal); J44.9 Chronic obstructive pulmonary disease, unspecified; I13.2 Hypertensive heart and chronic kidney disease with heart failure and with stage 5 chronic kidney disease, or end stage renal disease; E11.22 Type 2 diabetes mellitus with diabetic chronic kidney disease; E78.5 Hyperlipidemia, unspecified; F32.9 Major depressive disorder, single episode, unspecified; R06.02 Shortness of breath; J45.909 Unspecified asthma, uncomplicated; G81.91 Hemiplegia, unspecified affecting right dominant side; Z79.899 Other long term (current) drug therapy; Z95.810 Presence of automatic (implantable) cardiac defibrillator; Z87.891 Personal history of nicotine dependence; Z82.49 Family history of ischemic heart disease and other diseases of the circulatory system; Z99.2 Dependence on renal dialysis; Z79.82 Long term (current) use of aspirin; Z98.890 Other specified postprocedural states; Z79.02 Long term (current) use of antithrombotics/antiplatelets; Z79.52 Long term (current) use of systemic steroids
CPT/HCPCS: 36415; 36821; 80048; 85025; 85610; 85730; 93005; A4216; J0330; J0690; J1644; J2250; J2405; J2440; J2765; J3010; J3490; J7040; J2704

== ENCOUNTER 2018-01-24 11:43 | Inpatient (IN) | payer MEDICARE, OTHER ==
[~2018-01-24] VITALS: Ht 160 cm; Wt 61.2 kg
[~2018-01-24 11:43] MED LIST changes: -CALC0.253 PO; -CLOP75TA16 PO; -CODE473S5 PO; -OMEP20CA10 PO
[2018-01-24] MEDS ORDERED: ONDANSETRON HCL 4MG/2ML VIAL IV STA (12:10)
[2018-01-24] MEDS ORDERED: MORPHINE SULFATE 4 MG/ML CPJ (NOT FOR IM USE) IV STA (12:10)
[2018-01-24] MEDS ORDERED: ASPIRIN 81MG TABLET PO ONE (12:15)
[2018-01-24] MEDS ORDERED: NITROGLYCERIN OINT 1GM/INCH UDPKT TD ONE (12:15)
[2018-01-24 12:27] LABS: HEMATOCRIT. 30.3 % (36.0-48.0); HEMOGLOBIN. 10.2 g/dL (12.0-16.0); MEAN CORPUSCULAR HEMOGLOBIN 29.8 pg (28.0-32.0); MEAN CORPUSCULAR VOLUME 88.8 fL (81.0-99.0); MEAN PLATELET VOLUME 8.5 fl (7.4-10.4); PLATELET 147 x1000/uL (130-400); RED BLOOD CELL COUNT 3.41 mill/uL (4.2-5.4); RED CELL DISTRIBUTION WIDTH 14.4 % (11.6-14.6)
[2018-01-24 12:32] LABS: CHLORIDE 95 mEq/L (98-107)
[2018-01-24 12:35] LABS: PARTIAL THROMBOPLASTIN TIME 28.2 sec (23.4-31.0); PROTHROMBIN TIME 10.2 sec (9.4-11.6)
[2018-01-24 12:38] LABS: PHOSPHORUS 7.2 mg/dL (2.5-4.9)
[2018-01-24 13:37] LABS: ATYPICAL LYMPHOCYTES 1
[2018-01-24 13:38] LABS: PLATELET ESTIMATE NORMAL
[2018-01-24 16:30] VITALS: BP 156/83
[2018-01-24 16:43] VITALS: BP 156/83
[2018-01-24] MEDS: CALCIUM ACETATE 667MG CAPSULE PO SCH (18:46)
[2018-01-24 20:00] VITALS: BP 145/71
[2018-01-24] MEDS ORDERED: GUAIFENESIN-DM 200MG-20MG/10ML UDC PO PRN (20:15)
[2018-01-24] MEDS: ALBUTEROL (0.083%) 2.5MG/3ML NEB HHN SCH (20:31)
[2018-01-24] MEDS: HYDROCODONE/ACETAMINOPHEN 5/325MG TABLET PO PRN (20:50)
[2018-01-24] MEDS: QUETIAPINE FUMARATE 25MG TABLET PO SCH (20:51)
[2018-01-25] VITALS: BP 148/80
[2018-01-25] MEDS: ALBUTEROL (0.083%) 2.5MG/3ML NEB HHN SCH ×4 (01:59→20:14)
[2018-01-25 04:00] VITALS: BP 136/76
[2018-01-25 06:45] LABS: BASOPHILS % 0.8 % (0.0-2.0); EOSINOPHILS % 3.8 % (0.0-5.0); HEMATOCRIT. 29.3 % (36.0-48.0); HEMOGLOBIN. 9.7 g/dL (12.0-16.0); LYMPHOCYTES % 12.5 % (20.0-50.0); MEAN CORPUSCULAR HEMOGLOBIN 29.3 pg (28.0-32.0); MEAN CORPUSCULAR VOLUME 88.4 fL (81.0-99.0); MEAN PLATELET VOLUME 8.2 fl (7.4-10.4); MONOCYTES % 13.3 % (2.0-8.0); NEUTROPHILS % 69.6 % (40.0-76.0); PLATELET 147 x1000/uL (130-400); RED BLOOD CELL COUNT 3.32 mill/uL (4.2-5.4); RED CELL DISTRIBUTION WIDTH 14.8 % (11.6-14.6)
[2018-01-25 08:00] VITALS: BP 139/69
[2018-01-25] MEDS: BENAZEPRIL 20MG TABLET PO SCH (09:36)
[2018-01-25] MEDS: CALCIUM ACETATE 667MG CAPSULE PO SCH ×2 (09:36→17:37)
[2018-01-25] MEDS: ATORVASTATIN CALCIUM 10MG TABLET PO SCH (09:36)
[2018-01-25] MEDS: ASPIRIN 81MG TABLET PO SCH (09:37)
[2018-01-25] MEDS: AMLODIPINE 10MG TABLET PO SCH (09:37)
[2018-01-25 12:00] VITALS: BP 136/65
[2018-01-25] MEDS: FOLIC ACID/VITAMIN B COMP W-C TABLET PO SCH (12:28)
[2018-01-25] MEDS: HYDROCODONE/ACETAMINOPHEN 5/325MG TABLET PO PRN (12:28)
[2018-01-25 16:00] VITALS: BP 126/61
[2018-01-25 20:00] VITALS: BP 137/61
[2018-01-25] MEDS: QUETIAPINE FUMARATE 25MG TABLET PO SCH (21:37)
[2018-01-26] VITALS: BP 117/69
[2018-01-26] MEDS: HYDROCODONE/ACETAMINOPHEN 5/325MG TABLET PO PRN ×2 (00:08→21:00)
[2018-01-26] MEDS: ALBUTEROL (0.083%) 2.5MG/3ML NEB HHN SCH ×4 (01:56→21:43)
[2018-01-26 04:00] VITALS: BP 143/63
[2018-01-26 06:46] LABS: BASOPHILS % 0.5 % (0.0-2.0); EOSINOPHILS % 3.1 % (0.0-5.0); HEMATOCRIT. 30.3 % (36.0-48.0); HEMOGLOBIN. 10.1 g/dL (12.0-16.0); LYMPHOCYTES % 17.5 % (20.0-50.0); MEAN CORPUSCULAR HEMOGLOBIN 29.5 pg (28.0-32.0); MEAN CORPUSCULAR VOLUME 88.3 fL (81.0-99.0); MEAN PLATELET VOLUME 8.5 fl (7.4-10.4); MONOCYTES % 12.2 % (2.0-8.0); NEUTROPHILS % 66.7 % (40.0-76.0); PLATELET 154 x1000/uL (130-400); RED BLOOD CELL COUNT 3.44 mill/uL (4.2-5.4); RED CELL DISTRIBUTION WIDTH 14.1 % (11.6-14.6)
[2018-01-26 08:00] VITALS: BP 128/55
[2018-01-26] MEDS: ASPIRIN 81MG TABLET PO SCH (08:34)
[2018-01-26] MEDS: FOLIC ACID/VITAMIN B COMP W-C TABLET PO SCH (08:34)
[2018-01-26] MEDS: CALCIUM ACETATE 667MG CAPSULE PO SCH ×2 (08:34→18:18)
[2018-01-26] MEDS: ATORVASTATIN CALCIUM 10MG TABLET PO SCH (08:35)
[2018-01-26] MEDS: AMLODIPINE 10MG TABLET PO SCH (09:00)
[2018-01-26] MEDS ORDERED: QUETIAPINE FUMARATE 25MG TABLET PO SCH (09:00)
[2018-01-26] MEDS: BENAZEPRIL 20MG TABLET PO SCH (09:00)
[2018-01-26 12:00] VITALS: BP 123/65
[2018-01-26 16:00] VITALS: BP 134/87
[2018-01-26 20:00] VITALS: BP 132/57
[2018-01-26] MEDS: QUETIAPINE FUMARATE 25MG TABLET PO SCH (20:51)
[2018-01-27] VITALS: BP 141/60
[2018-01-27] MEDS: ALBUTEROL (0.083%) 2.5MG/3ML NEB HHN SCH ×2 (01:45→08:09)
[2018-01-27 04:00] VITALS: BP 141/63
[2018-01-27 08:00] VITALS: BP 137/55
[2018-01-27] MEDS: BENAZEPRIL 20MG TABLET PO SCH (08:50)
[2018-01-27] MEDS: ATORVASTATIN CALCIUM 10MG TABLET PO SCH (08:50)
[2018-01-27] MEDS: CALCIUM ACETATE 667MG CAPSULE PO SCH (08:50)
[2018-01-27] MEDS: FOLIC ACID/VITAMIN B COMP W-C TABLET PO SCH (08:50)
[2018-01-27] MEDS: ASPIRIN 81MG TABLET PO SCH (08:51)
[2018-01-27] MEDS: AMLODIPINE 10MG TABLET PO SCH (08:51)
[2018-01-27 10:58] VITALS: BP 113/65
== END 2018-01-27 11:40 | disposition home or self-care (01) | DRG 640 ==
LOC: ER 12:33 → EDBEDREQTM 13:27 → EDBEDREQ 13:27 → ENRESERV 15:34 → 7WST 16:16
PROVIDERS: ADMIT Internal Medicine; ATTEND Internal Medicine
PROC: 5A1D70Z Performance of Urinary Filtration, Intermittent, Less than 6 Hours Per Day (ICD-10-PCS; principal; 2018-01-24)
PROC: 5A1D70Z Performance of Urinary Filtration, Intermittent, Less than 6 Hours Per Day (ICD-10-PCS; 2018-01-25)
DX: E87.5 Hyperkalemia (principal); N18.6 End stage renal disease; I50.22 Chronic systolic (congestive) heart failure; I13.2 Hypertensive heart and chronic kidney disease with heart failure and with stage 5 chronic kidney disease, or end stage renal disease; G81.91 Hemiplegia, unspecified affecting right dominant side; I42.0 Dilated cardiomyopathy; N25.81 Secondary hyperparathyroidism of renal origin; R07.89 Other chest pain; D64.9 Anemia, unspecified; I73.9 Peripheral vascular disease, unspecified; M32.9 Systemic lupus erythematosus, unspecified; F17.200 Nicotine dependence, unspecified, uncomplicated; F32.9 Major depressive disorder, single episode, unspecified; I25.10 Atherosclerotic heart disease of native coronary artery without angina pectoris; I27.20 Pulmonary hypertension, unspecified; I34.0 Nonrheumatic mitral (valve) insufficiency; J44.9 Chronic obstructive pulmonary disease, unspecified; M32.14 Glomerular disease in systemic lupus erythematosus; Z79.82 Long term (current) use of aspirin; Z79.899 Other long term (current) drug therapy; Z99.2 Dependence on renal dialysis; Z86.79 Personal history of other diseases of the circulatory system; Z95.5 Presence of coronary angioplasty implant and graft; Z95.810 Presence of automatic (implantable) cardiac defibrillator
CPT/HCPCS: 36415; 71045; 80048; 80053; 83735; 83880; 84100; 84484; 85025; 85610; 85730; 93005; 93971; 96374; 96375; 99291; J2270; J2405; J7030; J7611

== ENCOUNTER 2018-02-21 23:55 | Inpatient (IN) | payer MEDICARE, OTHER ==
[~2018-02-21] VITALS: Ht 162.6 cm; Wt 60.8 kg
[~2018-02-21 23:55] MED LIST changes: -BENA40TA3 PO; +BENA40TA9 PO
[2018-02-22] VITALS (29 sets, daily range): BP systolic 139–172; BP diastolic 63–114
[2018-02-22] MEDS ORDERED: ONDANSETRON HCL 4MG/2ML VIAL IV STA (00:07)
[2018-02-22] MEDS ORDERED: HYDRALAZINE 20MG/ML VIAL IV ONE (00:15)
[2018-02-22 00:54] LABS: BASOPHILS % 0.8 % (0.0-2.0); EOSINOPHILS % 2.6 % (0.0-5.0); HEMATOCRIT. 29.8 % (36.0-48.0); HEMOGLOBIN. 9.8 g/dL (12.0-16.0); LYMPHOCYTES % 8.2 % (20.0-50.0); MEAN CORPUSCULAR HEMOGLOBIN 29.5 pg (28.0-32.0); MEAN CORPUSCULAR VOLUME 89.3 fL (81.0-99.0); MEAN PLATELET VOLUME 8.4 fl (7.4-10.4); MONOCYTES % 3.8 % (2.0-8.0); NEUTROPHILS % 84.6 % (40.0-76.0); PLATELET 170 x1000/uL (130-400); RED BLOOD CELL COUNT 3.34 mill/uL (4.2-5.4); RED CELL DISTRIBUTION WIDTH 16.6 % (11.6-14.6)
[2018-02-22 00:57] LABS: CHLORIDE 101 mEq/L (98-107)
[2018-02-22 01:00] LABS: INR 1.1; PROTHROMBIN TIME 10.7 sec (9.1-11.1)
[2018-02-22 01:34] LABS: BG BASE EXCESS 3.1 mmol/L (-2.0-2.0); BG BILEVEL POS AIRWAY PRESSURE 18/5; BG CARBOXYHEMOGLOBIN 0.3 % (0.5-1.5); BG DEOXYHEMOGLOBIN 0.5 % (0.0-5.0); BG FRACTION INSPIRED OXYGEN 100; BG HCO3 ACT 28.5 mmol/L (22.0-26.0); BG METHEMOGLOBIN 0.3 % (0.0-1.5); BG OXYGEN SATURATION 99.5 % (92.0-98.5); BG OXYHEMOGLOBIN 98.9 % (94.0-97.0); BG PCO2 47.6 mmHg (35.0-45.0); BG PH 7.395 (7.350-7.450); BG PO2 500.5 mmHg (75.0-100.0); BG SAMPLE SITE RIGHT RADIAL; BG TOTAL HEMOGLOBIN 10.4 g/dL (12.0-18.0); BG VENT MODE MASK - BIPAP; BG VENT RATE 20 set
[2018-02-22] MEDS ORDERED: ASPIRIN 81MG TABLET PO NR (10:00)
[2018-02-22] MEDS ORDERED: PREDNISONE 5MG TABLET PO NR (10:00)
[2018-02-22] MEDS ORDERED: CEFAZOLIN 1000MG PREMIX 50 ML IV NR (12:30)
[2018-02-22] MEDS: IPRATROPIUM/ALBUTEROL 0.5-3(2.5)MG/3ML NEB HHN SCH ×4 (12:51→23:43)
[2018-02-22] MEDS ORDERED: LIDOCAINE HCL 1% 20ML VIAL (Pyxis) INJ ONE (12:57)
[2018-02-22] MEDS ORDERED: IOHEXOL-300 100 ML BOTTLE ONE ×2 (12:57→15:54)
[2018-02-22] MEDS ORDERED: HEPARIN 1000 UNITS/ML 10ML ONE (12:57)
[2018-02-22] MEDS ORDERED: SODIUM BICARBONATE 4% (2.4MEQ) 5ML VIAL IV ONE (12:57)
[2018-02-22] MEDS ORDERED: FENTANYL CITRATE/PF 50MCG/ML 2ML VIAL ONE (13:13)
[2018-02-22] MEDS ORDERED: CEFAZOLIN 1000MG PREMIX 50 ML IV ONE (13:13)
[2018-02-22] MEDS ORDERED: HEPARIN 5000 UNITS/ML VIAL IV NR (15:00)
[2018-02-22] MEDS ORDERED: FENTANYL CITRATE/PF 50MCG/ML 2ML VIAL IV ONE (15:30)
[2018-02-22] MEDS: CALCIUM ACETATE 667MG CAPSULE PO SCH ×2 (16:52→17:53)
[2018-02-22] MEDS: CLONIDINE 0.1MG TABLET PO SCH ×2 (16:53→21:46)
[2018-02-22] MEDS: BENAZEPRIL 20MG TABLET PO SCH (16:53)
[2018-02-22] MEDS: CLOPIDOGREL 75MG TABLET PO SCH (16:53)
[2018-02-22] MEDS: AMLODIPINE 10MG TABLET PO SCH (16:54)
[2018-02-22] MEDS ORDERED: DOCUSATE SODIUM 250MG CAPSULE PO PRN (19:00)
[2018-02-22] MEDS: ATORVASTATIN CALCIUM 10MG TABLET PO SCH (21:45)
[2018-02-23] VITALS (12 sets, daily range): BP systolic 123–150; BP diastolic 64–97
[2018-02-23] MEDS: IPRATROPIUM/ALBUTEROL 0.5-3(2.5)MG/3ML NEB HHN SCH ×5 (03:16→21:08)
[2018-02-23] MEDS: CLONIDINE 0.1MG TABLET PO SCH ×3 (06:41→21:23)
[2018-02-23 07:14] LABS: BASOPHILS % 1.4 % (0.0-2.0); EOSINOPHILS % 1.8 % (0.0-5.0); HEMATOCRIT. 23.3 % (36.0-48.0); HEMOGLOBIN. 7.8 g/dL (12.0-16.0); LYMPHOCYTES % 19.5 % (20.0-50.0); MEAN CORPUSCULAR HEMOGLOBIN 29.6 pg (28.0-32.0); MEAN CORPUSCULAR VOLUME 88.8 fL (81.0-99.0); MEAN PLATELET VOLUME 8.5 fl (7.4-10.4); NEUTROPHILS % 68.3 % (40.0-76.0); PLATELET 132 x1000/uL (130-400); RED BLOOD CELL COUNT 2.62 mill/uL (4.2-5.4); RED CELL DISTRIBUTION WIDTH 17.1 % (11.6-14.6)
[2018-02-23 07:26] LABS: PHOSPHORUS 5.5 mg/dL (2.5-4.9)
[2018-02-23] MEDS: CLOPIDOGREL 75MG TABLET PO SCH (08:42)
[2018-02-23] MEDS: CALCIUM ACETATE 667MG CAPSULE PO SCH ×3 (08:42→19:19)
[2018-02-23] MEDS: FOLIC ACID/VITAMIN B COMP W-C TABLET PO SCH (08:42)
[2018-02-23] MEDS: BENAZEPRIL 20MG TABLET PO SCH (09:00)
[2018-02-23] MEDS: AMLODIPINE 10MG TABLET PO SCH (09:00)
[2018-02-23] MEDS ORDERED: HEPARIN SODIUM 1,000 UNIT/1ML VIAL IV NR (16:45)
[2018-02-23] MEDS: ATORVASTATIN CALCIUM 10MG TABLET PO SCH (21:19)
[2018-02-24] VITALS (11 sets, daily range): BP systolic 120–153; BP diastolic 45–93
[2018-02-24] MEDS: IPRATROPIUM/ALBUTEROL 0.5-3(2.5)MG/3ML NEB HHN SCH ×5 (01:01→16:03)
[2018-02-24] MEDS: CLONIDINE 0.1MG TABLET PO SCH ×3 (05:36→21:28)
[2018-02-24 07:33] LABS: BASOPHILS % 1.1 % (0.0-2.0); HEMATOCRIT. 23.8 % (36.0-48.0); HEMOGLOBIN. 8.1 g/dL (12.0-16.0); LYMPHOCYTES % 29.5 % (20.0-50.0); MEAN CORPUSCULAR HEMOGLOBIN 30.2 pg (28.0-32.0); MEAN CORPUSCULAR VOLUME 89.1 fL (81.0-99.0); MEAN PLATELET VOLUME 8.6 fl (7.4-10.4); MONOCYTES % 11.7 % (2.0-8.0); NEUTROPHILS % 49.7 % (40.0-76.0); PLATELET 125 x1000/uL (130-400); RED BLOOD CELL COUNT 2.67 mill/uL (4.2-5.4); RED CELL DISTRIBUTION WIDTH 17.2 % (11.6-14.6)
[2018-02-24] MEDS: CALCIUM ACETATE 667MG CAPSULE PO SCH ×3 (08:43→17:30)
[2018-02-24] MEDS: FOLIC ACID/VITAMIN B COMP W-C TABLET PO SCH (08:43)
[2018-02-24] MEDS: AMLODIPINE 10MG TABLET PO SCH (08:45)
[2018-02-24] MEDS: BENAZEPRIL 20MG TABLET PO SCH (08:45)
[2018-02-24 11:08] LABS: BG BASE EXCESS 0.9 mmol/L (-2.0-2.0); BG CARBOXYHEMOGLOBIN 0.6 % (0.5-1.5); BG DEOXYHEMOGLOBIN 12.9 % (0.0-5.0); BG FRACTION INSPIRED OXYGEN 21; BG HCO3 ACT 24.8 mmol/L (22.0-26.0); BG METHEMOGLOBIN 0.3 % (0.0-1.5); BG OXYHEMOGLOBIN 86.2 % (94.0-97.0); BG PCO2 36.3 mmHg (35.0-45.0); BG PH 7.452 (7.350-7.450); BG PO2 55.1 mmHg (75.0-100.0); BG SAMPLE SITE LEFT RADIAL; BG TOTAL HEMOGLOBIN 8.5 g/dL (12.0-18.0); BG VENT MODE ROOM AIR
[2018-02-24] MEDS: TRAMADOL 50MG TABLET PO PRN ×2 (12:58→21:28)
[2018-02-24] MEDS: ATORVASTATIN CALCIUM 10MG TABLET PO SCH (21:27)
[2018-02-25] VITALS (12 sets, daily range): BP systolic 126–157; BP diastolic 46–89
[2018-02-25] MEDS: IPRATROPIUM/ALBUTEROL 0.5-3(2.5)MG/3ML NEB HHN SCH ×5 (00:20→16:55)
[2018-02-25] MEDS: CLONIDINE 0.1MG TABLET PO SCH ×2 (05:06→14:00)
[2018-02-25 07:54] LABS: EOSINOPHILS % 8.2 % (0.0-5.0); HEMATOCRIT. 22.7 % (36.0-48.0); HEMOGLOBIN. 7.7 g/dL (12.0-16.0); LYMPHOCYTES % 21.7 % (20.0-50.0); MEAN CORPUSCULAR VOLUME 88.5 fL (81.0-99.0); MEAN PLATELET VOLUME 8.7 fl (7.4-10.4); MONOCYTES % 13.4 % (2.0-8.0); NEUTROPHILS % 55.7 % (40.0-76.0); PLATELET 112 x1000/uL (130-400); RED BLOOD CELL COUNT 2.56 mill/uL (4.2-5.4); RED CELL DISTRIBUTION WIDTH 16.9 % (11.6-14.6)
[2018-02-25] MEDS: BENAZEPRIL 20MG TABLET PO SCH (09:00)
[2018-02-25] MEDS: AMLODIPINE 10MG TABLET PO SCH (09:00)
[2018-02-25] MEDS: CALCIUM ACETATE 667MG CAPSULE PO SCH ×3 (09:27→18:49)
[2018-02-25] MEDS: FOLIC ACID/VITAMIN B COMP W-C TABLET PO SCH (09:27)
[2018-02-25] MEDS ORDERED: HEPARIN SODIUM 1,000 UNIT/1ML VIAL IV NR (16:15)
[2018-02-25] MEDS ORDERED: EPOETIN ALFA 4000UNITS/ML VIAL SUBCUT SCH (21:00)
== END 2018-02-25 20:25 | disposition home or self-care (01) | DRG 252 ==
LOC: ER 23:55 → 5EST 02-22 02:53 → EDBEDREQTM 02-22 03:24 → EDBEDREQ 02-22 03:24 → EDBEDREQSVC 02-22 03:24 → ENRESERV 02-22 06:47 → CANRESERV 02-22 06:47 → ENRESERV 02-22 06:58
PROVIDERS: ADMIT Internal Medicine; ATTEND Internal Medicine
PROC: 5A1D70Z Performance of Urinary Filtration, Intermittent, Less than 6 Hours Per Day (ICD-10-PCS; 2018-02-22)
PROC: 5A09357 Assistance with Respiratory Ventilation, Less than 24 Consecutive Hours, Continuous Positive Airway Pressure (ICD-10-PCS; 2018-02-22)
PROC: 05CB3ZZ Extirpation of Matter from Right Basilic Vein, Percutaneous Approach (ICD-10-PCS; principal; 2018-02-23)
PROC: 057B3ZZ Dilation of Right Basilic Vein, Percutaneous Approach (ICD-10-PCS; 2018-02-23)
PROC: B51W1ZZ Fluoroscopy of Dialysis Shunt/Fistula using Low Osmolar Contrast (ICD-10-PCS; 2018-02-23)
PROC: B5181ZZ Fluoroscopy of Superior Vena Cava using Low Osmolar Contrast (ICD-10-PCS; 2018-02-23)
PROC: 4B02XTZ Measurement of Cardiac Defibrillator, External Approach (ICD-10-PCS; 2018-02-24)
PROC: 5A1D70Z Performance of Urinary Filtration, Intermittent, Less than 6 Hours Per Day (ICD-10-PCS; 2018-02-25)
DX: T82.868A Thrombosis due to vascular prosthetic devices, implants and grafts, initial encounter (principal); J96.21 Acute and chronic respiratory failure with hypoxia; N18.6 End stage renal disease; I50.23 Acute on chronic systolic (congestive) heart failure; I13.2 Hypertensive heart and chronic kidney disease with heart failure and with stage 5 chronic kidney disease, or end stage renal disease; J44.1 Chronic obstructive pulmonary disease with (acute) exacerbation; G81.91 Hemiplegia, unspecified affecting right dominant side; N25.81 Secondary hyperparathyroidism of renal origin; I42.0 Dilated cardiomyopathy; I27.20 Pulmonary hypertension, unspecified; D64.9 Anemia, unspecified; I25.5 Ischemic cardiomyopathy; I73.9 Peripheral vascular disease, unspecified; M32.9 Systemic lupus erythematosus, unspecified; M32.14 Glomerular disease in systemic lupus erythematosus; M19.90 Unspecified osteoarthritis, unspecified site; Z79.02 Long term (current) use of antithrombotics/antiplatelets; Z86.79 Personal history of other diseases of the circulatory system; Z87.891 Personal history of nicotine dependence; Z91.19 Patient's noncompliance with other medical treatment and regimen; Z99.2 Dependence on renal dialysis; Z79.82 Long term (current) use of aspirin; Z79.899 Other long term (current) drug therapy; Z95.5 Presence of coronary angioplasty implant and graft; Z95.810 Presence of automatic (implantable) cardiac defibrillator; Z99.81 Dependence on supplemental oxygen
CPT/HCPCS: 36415; 36600; 36905; 71045; 76937; 80048; 80053; 82375; 82805; 83605; 83735; 83880; 84100; 84484; 85025; 85610; 93005; 93970; 94640; 94660; 96365; 96375; 99152; 99153; 99291; C1725; C1766; C1769; C2630; J0360; J0690; J0885; J1644; J2405; J3010; J3490; J7030; J7050; J7512; J7620; Q9967

== ENCOUNTER 2018-03-30 07:18 | Inpatient (IN) | payer MEDICARE, OTHER ==
[2018-03-30] VITALS (8 sets, daily range): BP systolic 120–165; BP diastolic 72–86
[~2018-03-30] VITALS: Ht 157.5 cm; Wt 58.5 kg
[~2018-03-30 07:18] MED LIST changes: -ATOR10TA PO
[2018-03-30] MEDS ORDERED: ALBUTEROL (0.083%) 2.5MG/3ML NEB HHN STA (07:25)
[2018-03-30] MEDS ORDERED: METHYLPREDNISOLONE SOD SUCC 125 MG/2 ML VIAL IV STA (07:25)
[2018-03-30] MEDS ORDERED: IPRATROPIUM BROMIDE (0.02%) 0.5MG/2.5ML NEB HHN STA (07:25)
[2018-03-30] MEDS ORDERED: MAGNESIUM 2 G PREMIX 50 ML IV ONE (07:30)
[2018-03-30] MEDS ORDERED: ALBUTEROL (0.5%) 2.5MG/0.5ML NEB HHN ONE (07:38)
[2018-03-30 08:10] LABS: BASOPHILS % 1.2 % (0.0-2.0); HEMATOCRIT. 30.8 % (36.0-48.0); HEMOGLOBIN. 9.9 g/dL (12.0-16.0); LYMPHOCYTES % 27.9 % (20.0-50.0); MEAN CORPUSCULAR VOLUME 93.2 fL (81.0-99.0); MEAN PLATELET VOLUME 9.1 fl (7.4-10.4); MONOCYTES % 8.2 % (2.0-8.0); NEUTROPHILS % 57.7 % (40.0-76.0); PLATELET 149 x1000/uL (130-400); RED CELL DISTRIBUTION WIDTH 19.5 % (11.6-14.6)
[2018-03-30] MEDS ORDERED: LEVOFLOXACIN 750MG PREMIX 150 ML IV ONE (08:15)
[2018-03-30 08:16] LABS: CHLORIDE 99 mEq/L (98-107)
[2018-03-30] MEDS: CALCITRIOL 0.25MCG CAPSULE PO SCH (12:41)
[2018-03-30] MEDS: FERROUS SULFATE 325MG TABLET PO SCH (12:41)
[2018-03-30] MEDS: QUETIAPINE FUMARATE 25MG TABLET PO SCH (12:42)
[2018-03-30] MEDS: BENAZEPRIL 10MG TABLET PO SCH (12:43)
[2018-03-30] MEDS: SEVELAMER CARBONATE 800 MG TABLET PO SCH ×2 (12:43→18:09)
[2018-03-30] MEDS: IPRATROPIUM/ALBUTEROL 0.5-3(2.5)MG/3ML NEB HHN PRN ×3 (12:49→22:05)
[2018-03-30 15:40] LABS: INR 1.1; PARTIAL THROMBOPLASTIN TIME 41.3 sec (23.4-31.0); PROTHROMBIN TIME 10.9 sec (9.1-11.1)
[2018-03-30] MEDS: CARVEDILOL 12.5MG TABLET PO SCH (21:18)
[2018-03-31] VITALS (11 sets, daily range): BP systolic 114–157; BP diastolic 70–92
[2018-03-31] MEDS: IPRATROPIUM/ALBUTEROL 0.5-3(2.5)MG/3ML NEB HHN PRN ×2 (04:23→08:29)
[2018-03-31 06:59] LABS: BASOPHILS % 0.3 % (0.0-2.0); HEMATOCRIT. 25.4 % (36.0-48.0); HEMOGLOBIN. 8.3 g/dL (12.0-16.0); LYMPHOCYTES % 10.6 % (20.0-50.0); MEAN CORPUSCULAR VOLUME 91.7 fL (81.0-99.0); MEAN PLATELET VOLUME 9.2 fl (7.4-10.4); MONOCYTES % 8.9 % (2.0-8.0); NEUTROPHILS % 80.2 % (40.0-76.0); PLATELET 117 x1000/uL (130-400); RED BLOOD CELL COUNT 2.77 mill/uL (4.2-5.4); RED CELL DISTRIBUTION WIDTH 19.2 % (11.6-14.6)
[2018-03-31] MEDS: BENAZEPRIL 10MG TABLET PO SCH (08:36)
[2018-03-31] MEDS: SEVELAMER CARBONATE 800 MG TABLET PO SCH ×3 (08:36→17:16)
[2018-03-31] MEDS: FERROUS SULFATE 325MG TABLET PO SCH (08:37)
[2018-03-31] MEDS: CALCITRIOL 0.25MCG CAPSULE PO SCH (08:37)
[2018-03-31] MEDS: CARVEDILOL 12.5MG TABLET PO SCH (08:38)
[2018-03-31] MEDS: QUETIAPINE FUMARATE 25MG TABLET PO SCH (08:38)
[2018-03-31] MEDS: METHYLPREDNISOLONE SOD SUCC 40 MG/ML VIAL IV SCH ×2 (11:05→17:16)
[2018-03-31] MEDS ORDERED: LOSARTAN POTASSIUM 25 MG TABLET PO SCH (12:00)
[2018-03-31] MEDS: IPRATROPIUM/ALBUTEROL 0.5-3(2.5)MG/3ML NEB HHN SCH ×4 (13:00→23:53)
[2018-03-31] MEDS: AMLODIPINE 5MG TABLET PO SCH (20:55)
[2018-04-01] VITALS (11 sets, daily range): BP systolic 128–159; BP diastolic 49–101
[2018-04-01] MEDS: METHYLPREDNISOLONE SOD SUCC 40 MG/ML VIAL IV SCH (01:26)
[2018-04-01] MEDS: IPRATROPIUM/ALBUTEROL 0.5-3(2.5)MG/3ML NEB HHN SCH ×5 (04:11→20:54)
[2018-04-01 06:38] LABS: HEMATOCRIT. 24.9 % (36.0-48.0); HEMOGLOBIN. 8.2 g/dL (12.0-16.0); LYMPHOCYTES % 7.9 % (20.0-50.0); MEAN CORPUSCULAR HEMOGLOBIN 30.1 pg (28.0-32.0); MEAN CORPUSCULAR VOLUME 91.4 fL (81.0-99.0); MONOCYTES % 2.3 % (2.0-8.0); NEUTROPHILS % 89.8 % (40.0-76.0); PLATELET 132 x1000/uL (130-400); RED BLOOD CELL COUNT 2.72 mill/uL (4.2-5.4)
[2018-04-01] MEDS ORDERED: LEVOFLOXACIN 250MG PREMIX 50 ML IV SCH ×3 (08:00→15:30)
[2018-04-01] MEDS: SEVELAMER CARBONATE 800 MG TABLET PO SCH ×3 (08:00→17:01)
[2018-04-01] MEDS ORDERED: GENTAMICIN SULFATE 60 MG in SODIUM CHLORIDE 0.9% 50 ML IV NR (13:00)
[2018-04-01] MEDS ORDERED: GENTAMICIN 60MG PREMIX 50 ML IV NR (13:00)
[2018-04-01] MEDS ORDERED: VANCOMYCIN 1 G PREMIX 200 ML IV NR (13:30)
[2018-04-01] MEDS: FERROUS SULFATE 325MG TABLET PO SCH (13:52)
[2018-04-01] MEDS: PREDNISONE 20MG TABLET PO SCH (13:52)
[2018-04-01] MEDS: CALCITRIOL 0.25MCG CAPSULE PO SCH (13:53)
[2018-04-01] MEDS: FOLIC ACID/VITAMIN B COMP W-C TABLET PO SCH (13:53)
[2018-04-01] MEDS: QUETIAPINE FUMARATE 25MG TABLET PO SCH (13:53)
[2018-04-01] MEDS: AMLODIPINE 5MG TABLET PO SCH ×2 (13:54→21:05)
[2018-04-01] MEDS: LOSARTAN POTASSIUM 25 MG TABLET PO SCH (17:02)
[2018-04-01] MEDS: EPOETIN ALFA 4000UNITS/ML VIAL SUBCUT SCH (21:37)
[2018-04-02] VITALS (30 sets, daily range): BP systolic 120–154; BP diastolic 66–96
[2018-04-02] MEDS: IPRATROPIUM/ALBUTEROL 0.5-3(2.5)MG/3ML NEB HHN SCH ×6 (01:49→20:30)
[2018-04-02 07:28] LABS: HEMOGLOBIN. 8.3 g/dL (12.0-16.0); MEAN CORPUSCULAR VOLUME 91.1 fL (81.0-99.0); PLATELET 136 x1000/uL (130-400); RED BLOOD CELL COUNT 2.75 mill/uL (4.2-5.4); RED CELL DISTRIBUTION WIDTH 18.5 % (11.6-14.6)
[2018-04-02 07:33] LABS: INR 1.1; PROTHROMBIN TIME 10.6 sec (9.1-11.1)
[2018-04-02] MEDS ORDERED: SODIUM BICARBONATE 4% (2.4MEQ) 5ML VIAL IV ONE (09:25)
[2018-04-02] MEDS ORDERED: LIDOCAINE HCL 1% 20ML VIAL (Pyxis) INJ ONE (09:25)
[2018-04-02] MEDS ORDERED: FENTANYL CITRATE/PF 50MCG/ML 2ML VIAL ONE (10:04)
[2018-04-02] MEDS ORDERED: FENTANYL CITRATE/PF 50MCG/ML 2ML VIAL IV SCH (10:15)
[2018-04-02 10:18] LABS: PLATELET ESTIMATE NORMAL
[2018-04-02] MEDS: FERROUS SULFATE 325MG TABLET PO SCH (11:30)
[2018-04-02] MEDS: SEVELAMER CARBONATE 800 MG TABLET PO SCH ×3 (11:30→23:56)
[2018-04-02] MEDS: PREDNISONE 20MG TABLET PO SCH (11:30)
[2018-04-02] MEDS: QUETIAPINE FUMARATE 25MG TABLET PO SCH (11:31)
[2018-04-02] MEDS: CALCITRIOL 0.25MCG CAPSULE PO SCH (11:31)
[2018-04-02] MEDS: LOSARTAN POTASSIUM 25 MG TABLET PO SCH ×2 (11:31→17:00)
[2018-04-02] MEDS: FOLIC ACID/VITAMIN B COMP W-C TABLET PO SCH (11:31)
[2018-04-02] MEDS: AMLODIPINE 5MG TABLET PO SCH ×2 (11:32→21:09)
[2018-04-02] MEDS: HYDRALAZINE HCL 25MG TABLET PO SCH ×2 (14:00→22:27)
[2018-04-02] MEDS ORDERED: HEPARIN SODIUM 1,000 UNIT/1ML VIAL IV NR (15:00)
[2018-04-02] MEDS ORDERED: DIATR MEGLU/DIATRIZOATE SOLN 30ML PO NR (17:45)
[2018-04-03] VITALS (12 sets, daily range): BP systolic 90–148; BP diastolic 38–84
[2018-04-03] MEDS: IPRATROPIUM/ALBUTEROL 0.5-3(2.5)MG/3ML NEB HHN SCH ×6 (01:56→21:09)
[2018-04-03] MEDS: HYDRALAZINE HCL 25MG TABLET PO SCH ×3 (06:11→21:13)
[2018-04-03 08:37] LABS: BASOPHILS % 0.4 % (0.0-2.0); EOSINOPHILS % 0.1 % (0.0-5.0); HEMATOCRIT. 28.4 % (36.0-48.0); HEMOGLOBIN. 9.3 g/dL (12.0-16.0); LYMPHOCYTES % 17.9 % (20.0-50.0); MEAN CORPUSCULAR HEMOGLOBIN 29.9 pg (28.0-32.0); MEAN CORPUSCULAR VOLUME 91.5 fL (81.0-99.0); MEAN PLATELET VOLUME 9.5 fl (7.4-10.4); MONOCYTES % 10.3 % (2.0-8.0); NEUTROPHILS % 71.3 % (40.0-76.0); PLATELET 146 x1000/uL (130-400); RED CELL DISTRIBUTION WIDTH 18.1 % (11.6-14.6)
[2018-04-03] MEDS: QUETIAPINE FUMARATE 25MG TABLET PO SCH (08:51)
[2018-04-03] MEDS: FOLIC ACID/VITAMIN B COMP W-C TABLET PO SCH (08:51)
[2018-04-03] MEDS: CALCITRIOL 0.25MCG CAPSULE PO SCH (08:51)
[2018-04-03] MEDS: FERROUS SULFATE 325MG TABLET PO SCH (08:51)
[2018-04-03] MEDS: PREDNISONE 20MG TABLET PO SCH (08:51)
[2018-04-03] MEDS: SEVELAMER CARBONATE 800 MG TABLET PO SCH ×3 (08:51→18:04)
[2018-04-03] MEDS: AMLODIPINE 5MG TABLET PO SCH ×2 (08:52→21:12)
[2018-04-03] MEDS: LOSARTAN POTASSIUM 25 MG TABLET PO SCH ×2 (08:52→18:04)
[2018-04-03] MEDS: LEVOFLOXACIN 250MG TABLET PO SCH (18:04)
[2018-04-03] MEDS: EPOETIN ALFA 4000UNITS/ML VIAL SUBCUT SCH (21:13)
[2018-04-04] VITALS (12 sets, daily range): BP systolic 114–167; BP diastolic 60–97
[2018-04-04] MEDS: IPRATROPIUM/ALBUTEROL 0.5-3(2.5)MG/3ML NEB HHN SCH ×5 (04:06→20:47)
[2018-04-04] MEDS: HYDRALAZINE HCL 25MG TABLET PO SCH ×3 (05:44→21:02)
[2018-04-04] MEDS: FOLIC ACID/VITAMIN B COMP W-C TABLET PO SCH (08:36)
[2018-04-04] MEDS: CALCITRIOL 0.25MCG CAPSULE PO SCH (08:36)
[2018-04-04] MEDS: SEVELAMER CARBONATE 800 MG TABLET PO SCH ×3 (08:36→18:23)
[2018-04-04] MEDS: PREDNISONE 20MG TABLET PO SCH (08:37)
[2018-04-04] MEDS: FERROUS SULFATE 325MG TABLET PO SCH (08:37)
[2018-04-04] MEDS: LOSARTAN POTASSIUM 25 MG TABLET PO SCH ×2 (08:37→18:23)
[2018-04-04] MEDS: QUETIAPINE FUMARATE 25MG TABLET PO SCH (08:37)
[2018-04-04] MEDS: AMLODIPINE 5MG TABLET PO SCH ×2 (08:37→21:02)
[2018-04-04 17:58] LABS: HEMATOCRIT. 35.2 % (36.0-48.0); HEMOGLOBIN. 11.3 g/dL (12.0-16.0); MEAN CORPUSCULAR HEMOGLOBIN 29.5 pg (28.0-32.0); MEAN CORPUSCULAR VOLUME 92.1 fL (81.0-99.0); MEAN PLATELET VOLUME 9.4 fl (7.4-10.4); PLATELET 173 x1000/uL (130-400); RED BLOOD CELL COUNT 3.82 mill/uL (4.2-5.4); RED CELL DISTRIBUTION WIDTH 18.5 % (11.6-14.6)
[2018-04-04 22:18] LABS: NUCLEATED RED BLOOD CELLS 1 /100 WBC; PLATELET ESTIMATE NORMAL
[2018-04-05] VITALS (10 sets, daily range): BP systolic 120–168; BP diastolic 70–89
[2018-04-05] MEDS: IPRATROPIUM/ALBUTEROL 0.5-3(2.5)MG/3ML NEB HHN SCH ×4 (00:35→11:50)
[2018-04-05] MEDS: HYDRALAZINE HCL 25MG TABLET PO SCH ×2 (05:40→13:20)
[2018-04-05 06:41] LABS: HEMATOCRIT. 29.6 % (36.0-48.0); HEMOGLOBIN. 9.8 g/dL (12.0-16.0); MEAN CORPUSCULAR HEMOGLOBIN 30.4 pg (28.0-32.0); MEAN CORPUSCULAR VOLUME 91.3 fL (81.0-99.0); MEAN PLATELET VOLUME 9.1 fl (7.4-10.4); PLATELET 150 x1000/uL (130-400); RED BLOOD CELL COUNT 3.24 mill/uL (4.2-5.4); RED CELL DISTRIBUTION WIDTH 17.7 % (11.6-14.6)
[2018-04-05] MEDS: SEVELAMER CARBONATE 800 MG TABLET PO SCH ×3 (08:31→17:45)
[2018-04-05] MEDS: PREDNISONE 20MG TABLET PO SCH (08:32)
[2018-04-05] MEDS: CALCITRIOL 0.25MCG CAPSULE PO SCH (08:32)
[2018-04-05] MEDS: FOLIC ACID/VITAMIN B COMP W-C TABLET PO SCH (08:32)
[2018-04-05] MEDS: FERROUS SULFATE 325MG TABLET PO SCH (08:33)
[2018-04-05] MEDS: QUETIAPINE FUMARATE 25MG TABLET PO SCH (08:34)
[2018-04-05] MEDS: LOSARTAN POTASSIUM 25 MG TABLET PO SCH ×2 (08:37→17:51)
[2018-04-05] MEDS: AMLODIPINE 5MG TABLET PO SCH (08:38)
[2018-04-05] MEDS: LEVOFLOXACIN 250MG TABLET PO SCH (15:17)
[2018-04-05 18:53] LABS: PLATELET ESTIMATE NORMAL
== END 2018-04-05 18:40 | disposition home or self-care (01) | DRG 291 ==
LOC: ER 07:18 → 5EST 08:29 → EDBEDREQ 09:10 → ENRESERV 09:12 → 5EST 04-01 05:16
PROVIDERS: ADMIT Internal Medicine; ATTEND Internal Medicine
PROC: 5A1D70Z Performance of Urinary Filtration, Intermittent, Less than 6 Hours Per Day (ICD-10-PCS; 2018-03-30)
PROC: 5A09357 Assistance with Respiratory Ventilation, Less than 24 Consecutive Hours, Continuous Positive Airway Pressure (ICD-10-PCS; 2018-03-30)
PROC: 5A1D70Z Performance of Urinary Filtration, Intermittent, Less than 6 Hours Per Day (ICD-10-PCS; 2018-03-31)
PROC: 0J2TXYZ Change Other Device in Trunk Subcutaneous Tissue and Fascia, External Approach (ICD-10-PCS; principal; 2018-04-02)
PROC: 02PYX3Z Removal of Infusion Device from Great Vessel, External Approach (ICD-10-PCS; 2018-04-02)
PROC: 02HV33Z Insertion of Infusion Device into Superior Vena Cava, Percutaneous Approach (ICD-10-PCS; 2018-04-02)
PROC: B5181ZA Fluoroscopy of Superior Vena Cava using Low Osmolar Contrast, Guidance (ICD-10-PCS; 2018-04-02)
PROC: 5A1D70Z Performance of Urinary Filtration, Intermittent, Less than 6 Hours Per Day (ICD-10-PCS; 2018-04-02)
PROC: 5A1D70Z Performance of Urinary Filtration, Intermittent, Less than 6 Hours Per Day (ICD-10-PCS; 2018-04-03)
DX: I13.2 Hypertensive heart and chronic kidney disease with heart failure and with stage 5 chronic kidney disease, or end stage renal disease (principal); I50.43 Acute on chronic combined systolic (congestive) and diastolic (congestive) heart failure; J96.20 Acute and chronic respiratory failure, unspecified whether with hypoxia or hypercapnia; N18.6 End stage renal disease; E46 Unspecified protein-calorie malnutrition; N25.81 Secondary hyperparathyroidism of renal origin; J44.1 Chronic obstructive pulmonary disease with (acute) exacerbation; I42.0 Dilated cardiomyopathy; D63.1 Anemia in chronic kidney disease; E87.5 Hyperkalemia; F32.9 Major depressive disorder, single episode, unspecified; I27.20 Pulmonary hypertension, unspecified; I34.0 Nonrheumatic mitral (valve) insufficiency; I70.0 Atherosclerosis of aorta; I73.9 Peripheral vascular disease, unspecified; M32.9 Systemic lupus erythematosus, unspecified; Z82.49 Family history of ischemic heart disease and other diseases of the circulatory system; Z86.79 Personal history of other diseases of the circulatory system; Z87.891 Personal history of nicotine dependence; Z95.5 Presence of coronary angioplasty implant and graft; Z95.810 Presence of automatic (implantable) cardiac defibrillator; Z99.2 Dependence on renal dialysis; Z68.23 Body mass index [BMI] 23.0-23.9, adult
CPT/HCPCS: 36415; 36581; 71045; 77001; 80048; 80051; 80053; 82962; 83605; 83735; 83880; 84100; 84484; 85025; 85610; 85730; 87040; 93005; 94640; 94644; 94660; 96365; 96368; 96375; 99152; 99153; 99285; C1750; C1769; J0885; J1580; J1642; J1956; J2920; J2930; J3010; J3370; J3475; J3490; J7030; J7040; J7050; J7512; J7611; J7620

== ENCOUNTER 2018-05-11 12:21 | Inpatient (IN) | payer MEDICARE, OTHER ==
[~2018-05-11] VITALS: Ht 154.9 cm; Wt 56.2 kg
[2018-05-11] MEDS ORDERED: ALBUTEROL (0.083%) 2.5MG/3ML NEB HHN STA (12:44)
[2018-05-11] MEDS ORDERED: METHYLPREDNISOLONE SOD SUCC 125 MG/2 ML VIAL IV STA (12:44)
[2018-05-11] MEDS ORDERED: IPRATROPIUM BROMIDE (0.02%) 0.5MG/2.5ML NEB HHN STA (12:44)
[2018-05-11 13:29] LABS: BASOPHILS % 0.7 % (0.0-2.0); EOSINOPHILS % 1.1 % (0.0-5.0); HEMATOCRIT. 39.2 % (36.0-48.0); HEMOGLOBIN. 12.9 g/dL (12.0-16.0); LYMPHOCYTES % 8.2 % (20.0-50.0); MEAN CORPUSCULAR HEMOGLOBIN 29.7 pg (28.0-32.0); MEAN CORPUSCULAR VOLUME 90.2 fL (81.0-99.0); MEAN PLATELET VOLUME 9.4 fl (7.4-10.4); MONOCYTES % 6.9 % (2.0-8.0); NEUTROPHILS % 83.1 % (40.0-76.0); PLATELET 149 x1000/uL (130-400); RED BLOOD CELL COUNT 4.34 mill/uL (4.2-5.4); RED CELL DISTRIBUTION WIDTH 17.2 % (11.6-14.6)
[2018-05-11 13:37] LABS: CHLORIDE 98 mEq/L (98-107)
[2018-05-11] MEDS ORDERED: FUROSEMIDE 40MG/4ML VIAL IVP ONE (14:15)
[2018-05-11 20:00] VITALS: BP 142/74
[2018-05-11 22:38] VITALS: BP 154/98
[2018-05-12] MEDS ORDERED: ZOLPIDEM TARTRATE 5MG TABLET PO PRN
[2018-05-12] MEDS ORDERED: DIPHENHYDRAMINE 50MG/ML VIAL IV PRN
[2018-05-12] MEDS ORDERED: TRAMADOL 50MG TABLET PO PRN
[2018-05-12] MEDS ORDERED: DIPHENHYDRAMINE 25MG CAPSULE PO PRN (00:30)
[2018-05-12 00:37] VITALS: BP 166/86
[2018-05-12 04:00] VITALS: BP 162/90
[2018-05-12 06:42] LABS: BASOPHILS % 0.4 % (0.0-2.0); HEMATOCRIT. 38.8 % (36.0-48.0); HEMOGLOBIN. 12.4 g/dL (12.0-16.0); LYMPHOCYTES % 10.3 % (20.0-50.0); MEAN CORPUSCULAR HEMOGLOBIN 28.7 pg (28.0-32.0); MEAN CORPUSCULAR VOLUME 89.9 fL (81.0-99.0); MEAN PLATELET VOLUME 9.2 fl (7.4-10.4); MONOCYTES % 2.9 % (2.0-8.0); NEUTROPHILS % 86.4 % (40.0-76.0); PLATELET 162 x1000/uL (130-400); RED BLOOD CELL COUNT 4.31 mill/uL (4.2-5.4); RED CELL DISTRIBUTION WIDTH 17.1 % (11.6-14.6)
[2018-05-12 08:00] VITALS: BP 153/87
[2018-05-12] MEDS ORDERED: ALBUTEROL 6.7GM HFA INHALER INH SCH (09:00)
[2018-05-12] MEDS ORDERED: MEDICATION NOT ON FORMULARY EA (Prednisone 5 MG) PO SCH (09:00)
[2018-05-12] MEDS ORDERED: CARVEDILOL 12.5MG TABLET PO SCH (09:00)
[2018-05-12] MEDS: BENAZEPRIL 10MG TABLET PO SCH (09:35)
[2018-05-12] MEDS: CALCIUM ACETATE 667MG CAPSULE PO SCH (09:36)
[2018-05-12] MEDS: AMLODIPINE 10MG TABLET PO SCH (09:37)
[2018-05-12] MEDS: QUETIAPINE FUMARATE 25MG TABLET PO SCH (09:37)
[2018-05-12] MEDS: ASPIRIN 81MG TABLET PO SCH (09:37)
[2018-05-12] MEDS: PREDNISONE 5MG TABLET PO SCH (10:06)
[2018-05-12] MEDS ORDERED: IPRATROPIUM/ALBUTEROL 0.5-3(2.5)MG/3ML NEB HHN NR (11:00)
[2018-05-12] MEDS: IPRATROPIUM/ALBUTEROL 0.5-3(2.5)MG/3ML NEB HHN SCH ×3 (11:30→21:55)
[2018-05-12 12:00] VITALS: BP 127/75
[2018-05-12] MEDS ORDERED: HEPARIN SODIUM 1,000 UNIT/1ML VIAL IV PRN (12:00)
[2018-05-12 16:00] VITALS: BP 138/64
[2018-05-12] MEDS: CEFTRIAXONE 1 G PREMIX 50 ML IV SCH (18:48)
[2018-05-13] VITALS (8 sets, daily range): BP systolic 120–148; BP diastolic 70–89
[2018-05-13] MEDS: IPRATROPIUM/ALBUTEROL 0.5-3(2.5)MG/3ML NEB HHN SCH ×5 (01:22→21:12)
[2018-05-13 07:06] LABS: BASOPHILS % 0.6 % (0.0-2.0); EOSINOPHILS % 0.1 % (0.0-5.0); HEMATOCRIT. 33.4 % (36.0-48.0); HEMOGLOBIN. 11.2 g/dL (12.0-16.0); LYMPHOCYTES % 12.5 % (20.0-50.0); MEAN CORPUSCULAR HEMOGLOBIN 29.9 pg (28.0-32.0); MEAN CORPUSCULAR VOLUME 89.3 fL (81.0-99.0); MEAN PLATELET VOLUME 9.1 fl (7.4-10.4); MONOCYTES % 8.3 % (2.0-8.0); NEUTROPHILS % 78.5 % (40.0-76.0); PLATELET 168 x1000/uL (130-400); RED BLOOD CELL COUNT 3.74 mill/uL (4.2-5.4); RED CELL DISTRIBUTION WIDTH 17.2 % (11.6-14.6)
[2018-05-13] MEDS: CALCIUM ACETATE 667MG CAPSULE PO SCH (08:16)
[2018-05-13] MEDS: AMLODIPINE 10MG TABLET PO SCH (08:16)
[2018-05-13] MEDS: BENAZEPRIL 10MG TABLET PO SCH (08:16)
[2018-05-13] MEDS: ASPIRIN 81MG TABLET PO SCH (08:16)
[2018-05-13] MEDS: CEFTRIAXONE 1 G PREMIX 50 ML IV SCH (12:14)
[2018-05-14] VITALS: BP 136/84
[2018-05-14] MEDS: IPRATROPIUM/ALBUTEROL 0.5-3(2.5)MG/3ML NEB HHN SCH ×5 (00:42→16:46)
[2018-05-14 04:00] VITALS: BP 139/89
[2018-05-14 07:49] LABS: BASOPHILS % 0.9 % (0.0-2.0); EOSINOPHILS % 2.6 % (0.0-5.0); HEMATOCRIT. 34.1 % (36.0-48.0); HEMOGLOBIN. 11.3 g/dL (12.0-16.0); LYMPHOCYTES % 24.6 % (20.0-50.0); MEAN CORPUSCULAR HEMOGLOBIN 29.5 pg (28.0-32.0); MEAN CORPUSCULAR VOLUME 89.2 fL (81.0-99.0); MEAN PLATELET VOLUME 9.2 fl (7.4-10.4); MONOCYTES % 13.1 % (2.0-8.0); NEUTROPHILS % 58.8 % (40.0-76.0); PLATELET 161 x1000/uL (130-400); RED BLOOD CELL COUNT 3.82 mill/uL (4.2-5.4); RED CELL DISTRIBUTION WIDTH 17.1 % (11.6-14.6)
[2018-05-14 08:00] VITALS: BP 130/68
[2018-05-14] MEDS: CALCIUM ACETATE 667MG CAPSULE PO SCH (09:11)
[2018-05-14] MEDS: BENAZEPRIL 10MG TABLET PO SCH (09:11)
[2018-05-14] MEDS: PREDNISONE 5MG TABLET PO SCH (09:12)
[2018-05-14] MEDS: AMLODIPINE 10MG TABLET PO SCH (09:12)
[2018-05-14] MEDS: ASPIRIN 81MG TABLET PO SCH (09:12)
[2018-05-14] MEDS: QUETIAPINE FUMARATE 25MG TABLET PO SCH (09:13)
[2018-05-14] MEDS: CEFTRIAXONE 1 G PREMIX 50 ML IV SCH (11:02)
[2018-05-14 12:00] VITALS: BP 137/76
[2018-05-14 16:00] VITALS: BP 126/68
[2018-05-14 17:33] VITALS: BP 126/68
== END 2018-05-14 18:07 | disposition home or self-care (01) | DRG 291 ==
LOC: ER 12:21 → 7WST 14:03 → ENRESERV 19:26
PROVIDERS: ADMIT Internal Medicine; ATTEND Internal Medicine
PROC: 5A1D70Z Performance of Urinary Filtration, Intermittent, Less than 6 Hours Per Day (ICD-10-PCS; principal; 2018-05-11)
DX: I13.2 Hypertensive heart and chronic kidney disease with heart failure and with stage 5 chronic kidney disease, or end stage renal disease (principal); J96.20 Acute and chronic respiratory failure, unspecified whether with hypoxia or hypercapnia; N18.6 End stage renal disease; I50.23 Acute on chronic systolic (congestive) heart failure; J44.1 Chronic obstructive pulmonary disease with (acute) exacerbation; J45.901 Unspecified asthma with (acute) exacerbation; N25.81 Secondary hyperparathyroidism of renal origin; I42.0 Dilated cardiomyopathy; Z99.2 Dependence on renal dialysis; D64.9 Anemia, unspecified; E11.22 Type 2 diabetes mellitus with diabetic chronic kidney disease; E11.51 Type 2 diabetes mellitus with diabetic peripheral angiopathy without gangrene; M70.32 Other bursitis of elbow, left elbow; E78.5 Hyperlipidemia, unspecified; F32.9 Major depressive disorder, single episode, unspecified; I25.10 Atherosclerotic heart disease of native coronary artery without angina pectoris; I27.20 Pulmonary hypertension, unspecified; M32.9 Systemic lupus erythematosus, unspecified; Z79.899 Other long term (current) drug therapy; Z82.49 Family history of ischemic heart disease and other diseases of the circulatory system; Z86.79 Personal history of other diseases of the circulatory system; Z87.891 Personal history of nicotine dependence; Z95.5 Presence of coronary angioplasty implant and graft; Z95.810 Presence of automatic (implantable) cardiac defibrillator; Z79.82 Long term (current) use of aspirin; Z91.19 Patient's noncompliance with other medical treatment and regimen; Y93.89 Activity, other specified
CPT/HCPCS: 36415; 71045; 80048; 82962; 83880; 84484; 87804; 93005; 96374; 96375; 99285; J0696; J1644; J1940; J2930; J7050; J7512; J7611; J7620

== ENCOUNTER 2018-06-30 15:46 | Inpatient (IN) | payer MEDICARE, OTHER ==
[~2018-06-30] VITALS: Ht 157.5 cm; Wt 59.4 kg
[2018-06-30 17:14] LABS: BASOPHILS % 1.2 % (0.0-2.0); EOSINOPHILS % 2.1 % (0.0-5.0); HEMATOCRIT. 32.1 % (36.0-48.0); HEMOGLOBIN. 10.4 g/dL (12.0-16.0); LYMPHOCYTES % 8.6 % (20.0-50.0); MEAN CORPUSCULAR HEMOGLOBIN 28.2 pg (28.0-32.0); MEAN CORPUSCULAR VOLUME 87.4 fL (81.0-99.0); MEAN PLATELET VOLUME 9.3 fl (7.4-10.4); MONOCYTES % 3.4 % (2.0-8.0); NEUTROPHILS % 84.7 % (40.0-76.0); PLATELET 169 x1000/uL (130-400); RED BLOOD CELL COUNT 3.68 mill/uL (4.2-5.4)
[2018-06-30 17:18] LABS: CHLORIDE 105 mEq/L (98-107)
[2018-06-30 17:21] LABS: INR 1.1; PARTIAL THROMBOPLASTIN TIME 27.9 sec (23.4-31.0); PROTHROMBIN TIME 10.7 sec (9.1-11.1)
[2018-06-30] MEDS ORDERED: ALBUTEROL (0.083%) 2.5MG/3ML NEB HHN STA (17:40)
[2018-06-30] MEDS ORDERED: METHYLPREDNISOLONE SOD SUCC 125 MG/2 ML VIAL IV STA (17:40)
[2018-06-30] MEDS ORDERED: IPRATROPIUM BROMIDE (0.02%) 0.5MG/2.5ML NEB HHN STA (17:40)
[2018-06-30] MEDS ORDERED: LEVOFLOXACIN 500MG PREMIX 100 ML IV ONE ×2 (17:45→18:15)
[2018-06-30] MEDS ORDERED: PIPERACILLIN/TAZ 3.375G PREMIX 50 ML IV ONE (18:15)
[2018-06-30] MEDS ORDERED: CARV12.545 MT (22:54)
[2018-06-30 23:00] VITALS: BP 146/62
[2018-06-30] MEDS ORDERED: DOCUSATE SODIUM 250MG CAPSULE PO PRN (23:45)
[2018-06-30] MEDS ORDERED: IPRATROPIUM/ALBUTEROL 0.5-3(2.5)MG/3ML NEB HHN PRN (23:45)
[2018-06-30] MEDS ORDERED: ACETAMINOPHEN 650MG/20.3ML UDC PO PRN (23:45)
[2018-07-01] VITALS (7 sets, daily range): BP systolic 114–147; BP diastolic 67–89
[2018-07-01 00:32] LABS: BG CARBOXYHEMOGLOBIN 0.4 % (0.5-1.5); BG DEOXYHEMOGLOBIN 9.3 % (0.0-5.0); BG FRACTION INSPIRED OXYGEN 28; BG METHEMOGLOBIN 0.2 % (0.0-1.5); BG OXYGEN SATURATION 90.6 % (92.0-98.5); BG OXYHEMOGLOBIN 90.1 % (94.0-97.0); BG PCO2 40.8 mmHg (35.0-45.0); BG PH 7.387 (7.350-7.450); BG SAMPLE SITE LEFT RADIAL; BG VENT MODE NASAL CANNULA
[2018-07-01] MEDS: IPRATROPIUM/ALBUTEROL 0.5-3(2.5)MG/3ML NEB HHN SCH ×5 (00:40→20:32)
[2018-07-01] MEDS: ZOLPIDEM TARTRATE 5MG TABLET PO PRN ×2 (03:06→21:40)
[2018-07-01] MEDS: PIPERACILLIN/TAZ 2.25G PREMIX 50 ML IV SCH ×3 (05:05→21:17)
[2018-07-01] MEDS: ONDANSETRON HCL 4MG TABLET PO PRN ×2 (05:05→09:46)
[2018-07-01] MEDS: QUETIAPINE FUMARATE 25MG TABLET PO SCH (08:39)
[2018-07-01] MEDS: SEVELAMER CARBONATE 800 MG TABLET PO SCH ×3 (08:39→17:37)
[2018-07-01] MEDS: CALCIUM ACETATE 667MG CAPSULE PO SCH (08:39)
[2018-07-01] MEDS: ASPIRIN 81MG TABLET PO SCH (08:39)
[2018-07-01] MEDS: FOLIC ACID/VITAMIN B COMP W-C TABLET PO SCH (08:41)
[2018-07-01] MEDS ORDERED: PREDNISONE 5MG TABLET PO SCH (09:00)
[2018-07-01] MEDS: AMLODIPINE 10MG TABLET PO SCH (09:00)
[2018-07-01] MEDS: BENAZEPRIL 10MG TABLET PO SCH (09:00)
[2018-07-01] MEDS ORDERED: CLONIDINE 0.1MG TABLET PO PRN (10:45)
[2018-07-01] MEDS: PANTOPRAZOLE SODIUM 40 MG/VIAL IV SCH (11:51)
[2018-07-01] MEDS: METHYLPREDNISOLONE SOD SUCC 125 MG/2 ML VIAL IV SCH ×2 (13:15→21:16)
[2018-07-01] MEDS ORDERED: HEPARIN SODIUM 1,000 UNIT/1ML VIAL IV NR (16:15)
[2018-07-02] VITALS (8 sets, daily range): BP systolic 107–150; BP diastolic 70–87
[2018-07-02] MEDS: IPRATROPIUM/ALBUTEROL 0.5-3(2.5)MG/3ML NEB HHN SCH ×6 (00:15→21:39)
[2018-07-02] MEDS: METHYLPREDNISOLONE SOD SUCC 125 MG/2 ML VIAL IV SCH (06:48)
[2018-07-02] MEDS: PIPERACILLIN/TAZ 2.25G PREMIX 50 ML IV SCH ×3 (06:49→21:05)
[2018-07-02] MEDS: SEVELAMER CARBONATE 800 MG TABLET PO SCH ×3 (08:04→17:42)
[2018-07-02] MEDS: FOLIC ACID/VITAMIN B COMP W-C TABLET PO SCH (08:04)
[2018-07-02] MEDS: CALCIUM ACETATE 667MG CAPSULE PO SCH (08:04)
[2018-07-02] MEDS: AMLODIPINE 10MG TABLET PO SCH (08:05)
[2018-07-02] MEDS: ASPIRIN 81MG TABLET PO SCH (08:05)
[2018-07-02] MEDS: QUETIAPINE FUMARATE 25MG TABLET PO SCH (08:06)
[2018-07-02] MEDS: BENAZEPRIL 10MG TABLET PO SCH (08:06)
[2018-07-02] MEDS: PANTOPRAZOLE SODIUM 40 MG/VIAL IV SCH (08:06)
[2018-07-02 11:13] LABS: CREATINE KINASE MB FRACTION 9.2 ng/mL (0.5-3.6); PHOSPHORUS 3.1 mg/dL (2.5-4.9)
[2018-07-02] MEDS: METHYLPREDNISOLONE SOD SUCC 40 MG/ML VIAL IV SCH ×2 (13:24→21:05)
[2018-07-02] MEDS: ONDANSETRON HCL 4MG TABLET PO PRN (15:02)
[2018-07-02] MEDS: SILDENAFIL CITRATE 20MG TABLET PO SCH ×2 (15:17→21:05)
[2018-07-02 16:20] LABS: HEMATOCRIT. 30.7 % (36.0-48.0); HEMOGLOBIN. 9.8 g/dL (12.0-16.0); MEAN CORPUSCULAR HEMOGLOBIN 28.4 pg (28.0-32.0); MEAN CORPUSCULAR VOLUME 89.2 fL (81.0-99.0); MEAN PLATELET VOLUME 9.4 fl (7.4-10.4); PLATELET 152 x1000/uL (130-400); RED BLOOD CELL COUNT 3.44 mill/uL (4.2-5.4)
[2018-07-02 18:19] LABS: PLATELET ESTIMATE NORMAL
[2018-07-03] VITALS: BP 122/81
[2018-07-03] MEDS: IPRATROPIUM/ALBUTEROL 0.5-3(2.5)MG/3ML NEB HHN SCH ×6 (00:26→20:55)
[2018-07-03 04:15] VITALS: BP 125/83
[2018-07-03] MEDS: SILDENAFIL CITRATE 20MG TABLET PO SCH ×3 (05:00→22:02)
[2018-07-03] MEDS: METHYLPREDNISOLONE SOD SUCC 40 MG/ML VIAL IV SCH ×3 (05:00→22:02)
[2018-07-03] MEDS: PIPERACILLIN/TAZ 2.25G PREMIX 50 ML IV SCH ×3 (05:00→22:02)
[2018-07-03 06:45] LABS: CHLORIDE 103 mEq/L (98-107)
[2018-07-03 08:00] VITALS: BP 137/82
[2018-07-03] MEDS: FAMOTIDINE 20MG/2ML VIAL IV SCH (08:26)
[2018-07-03] MEDS: QUETIAPINE FUMARATE 25MG TABLET PO SCH (08:26)
[2018-07-03] MEDS: CALCIUM ACETATE 667MG CAPSULE PO SCH (08:26)
[2018-07-03] MEDS: BENAZEPRIL 10MG TABLET PO SCH (08:26)
[2018-07-03] MEDS: SEVELAMER CARBONATE 800 MG TABLET PO SCH ×3 (08:27→17:03)
[2018-07-03] MEDS: FOLIC ACID/VITAMIN B COMP W-C TABLET PO SCH (08:27)
[2018-07-03] MEDS: ASPIRIN 81MG TABLET PO SCH (08:27)
[2018-07-03] MEDS: AMLODIPINE 10MG TABLET PO SCH (08:27)
[2018-07-03] MEDS ORDERED: DIPHENHYDRAMINE 50MG/ML VIAL IV PRN (11:00)
[2018-07-03 12:00] VITALS: BP 136/78
[2018-07-03 16:00] VITALS: BP 144/76
[2018-07-03 20:00] VITALS: BP 140/80
[2018-07-03] MEDS: ZOLPIDEM TARTRATE 5MG TABLET PO PRN (22:10)
[2018-07-04] VITALS: BP 143/79
[2018-07-04] MEDS: IPRATROPIUM/ALBUTEROL 0.5-3(2.5)MG/3ML NEB HHN SCH ×5 (01:30→20:07)
[2018-07-04 04:00] VITALS: BP 148/76
[2018-07-04] MEDS: METHYLPREDNISOLONE SOD SUCC 40 MG/ML VIAL IV SCH (05:40)
[2018-07-04] MEDS: SILDENAFIL CITRATE 20MG TABLET PO SCH ×3 (05:41→21:32)
[2018-07-04] MEDS: PIPERACILLIN/TAZ 2.25G PREMIX 50 ML IV SCH (05:41)
[2018-07-04 06:48] LABS: HEMATOCRIT. 32.6 % (36.0-48.0); HEMOGLOBIN. 10.6 g/dL (12.0-16.0); MEAN CORPUSCULAR HEMOGLOBIN 28.8 pg (28.0-32.0); MEAN CORPUSCULAR VOLUME 88.5 fL (81.0-99.0); MEAN PLATELET VOLUME 9.6 fl (7.4-10.4); PLATELET 170 x1000/uL (130-400); RED BLOOD CELL COUNT 3.69 mill/uL (4.2-5.4); RED CELL DISTRIBUTION WIDTH 17.4 % (11.6-14.6)
[2018-07-04 08:00] VITALS: BP 148/73
[2018-07-04] MEDS: SEVELAMER CARBONATE 800 MG TABLET PO SCH ×3 (09:34→18:06)
[2018-07-04] MEDS: ASPIRIN 81MG TABLET PO SCH (09:34)
[2018-07-04] MEDS: BENAZEPRIL 10MG TABLET PO SCH (09:35)
[2018-07-04] MEDS: CALCIUM ACETATE 667MG CAPSULE PO SCH (09:35)
[2018-07-04] MEDS: AMLODIPINE 10MG TABLET PO SCH (09:35)
[2018-07-04] MEDS: QUETIAPINE FUMARATE 25MG TABLET PO SCH (09:35)
[2018-07-04] MEDS: FAMOTIDINE 20MG/2ML VIAL IV SCH (09:36)
[2018-07-04] MEDS: FOLIC ACID/VITAMIN B COMP W-C TABLET PO SCH (09:36)
[2018-07-04 10:11] LABS: PLATELET ESTIMATE NORMAL
[2018-07-04] MEDS ORDERED: LEVOFLOXACIN 500MG TABLET PO SCH (11:00)
[2018-07-04 12:00] VITALS: BP 147/74
[2018-07-04] MEDS: LEVOFLOXACIN 250MG TABLET PO SCH ×2 (13:26→13:29)
[2018-07-04 16:00] VITALS: BP 140/82
[2018-07-04] MEDS ORDERED: HEPARIN SODIUM 1,000 UNIT/1ML VIAL IV NR (17:48)
[2018-07-04 20:00] VITALS: BP 127/84
[2018-07-05] VITALS: BP 138/78
[2018-07-05] MEDS: IPRATROPIUM/ALBUTEROL 0.5-3(2.5)MG/3ML NEB HHN SCH ×3 (00:24→09:18)
[2018-07-05] MEDS ORDERED: DIPHENHYDRAMINE 25MG CAPSULE PO PRN (03:15)
[2018-07-05 04:00] VITALS: BP 135/82
[2018-07-05] MEDS: SILDENAFIL CITRATE 20MG TABLET PO SCH (06:16)
[2018-07-05 07:54] LABS: BASOPHILS % 0.2 % (0.0-2.0); EOSINOPHILS % 1.1 % (0.0-5.0); HEMATOCRIT. 32.6 % (36.0-48.0); HEMOGLOBIN. 10.5 g/dL (12.0-16.0); LYMPHOCYTES % 14.5 % (20.0-50.0); MEAN CORPUSCULAR HEMOGLOBIN 28.3 pg (28.0-32.0); MEAN CORPUSCULAR VOLUME 87.5 fL (81.0-99.0); MONOCYTES % 13.3 % (2.0-8.0); NEUTROPHILS % 70.9 % (40.0-76.0); PLATELET 146 x1000/uL (130-400); RED BLOOD CELL COUNT 3.72 mill/uL (4.2-5.4); RED CELL DISTRIBUTION WIDTH 17.3 % (11.6-14.6)
[2018-07-05 08:00] VITALS: BP 152/87
[2018-07-05] MEDS: FOLIC ACID/VITAMIN B COMP W-C TABLET PO SCH (08:49)
[2018-07-05] MEDS: ASPIRIN 81MG TABLET PO SCH (08:49)
[2018-07-05] MEDS: SEVELAMER CARBONATE 800 MG TABLET PO SCH (08:49)
[2018-07-05] MEDS: CALCIUM ACETATE 667MG CAPSULE PO SCH (08:49)
[2018-07-05] MEDS: BENAZEPRIL 10MG TABLET PO SCH (08:51)
[2018-07-05] MEDS: AMLODIPINE 10MG TABLET PO SCH (08:51)
[2018-07-05] MEDS: QUETIAPINE FUMARATE 25MG TABLET PO SCH (08:51)
[2018-07-05] MEDS ORDERED: PREDNISONE 20MG TABLET PO SCH (09:00)
[2018-07-05 12:20] VITALS: BP 145/78
[2018-07-06] MEDS ORDERED: LEVOFLOXACIN 500MG TABLET PO SCH (11:00)
== END 2018-07-05 14:10 | disposition home or self-care (01) | DRG 193 ==
LOC: ER 17:39 → 8WST 18:23 → EDBEDREQ 18:27 → EDBEDREQTM 18:27 → EDBEDREQSVC 18:27 → ENRESERV 20:01
PROVIDERS: ADMIT Internal Medicine; ATTEND Internal Medicine
PROC: 5A1D70Z Performance of Urinary Filtration, Intermittent, Less than 6 Hours Per Day (ICD-10-PCS; principal; 2018-07-01)
PROC: 5A1D70Z Performance of Urinary Filtration, Intermittent, Less than 6 Hours Per Day (ICD-10-PCS; 2018-07-03)
PROC: 5A1D70Z Performance of Urinary Filtration, Intermittent, Less than 6 Hours Per Day (ICD-10-PCS; 2018-07-04)
DX: J18.1 Lobar pneumonia, unspecified organism (principal); N18.6 End stage renal disease; J96.21 Acute and chronic respiratory failure with hypoxia; I50.23 Acute on chronic systolic (congestive) heart failure; J44.0 Chronic obstructive pulmonary disease with (acute) lower respiratory infection; J44.1 Chronic obstructive pulmonary disease with (acute) exacerbation; G81.91 Hemiplegia, unspecified affecting right dominant side; I13.2 Hypertensive heart and chronic kidney disease with heart failure and with stage 5 chronic kidney disease, or end stage renal disease; I42.0 Dilated cardiomyopathy; N25.81 Secondary hyperparathyroidism of renal origin; Z99.2 Dependence on renal dialysis; D63.1 Anemia in chronic kidney disease; E11.22 Type 2 diabetes mellitus with diabetic chronic kidney disease; E11.51 Type 2 diabetes mellitus with diabetic peripheral angiopathy without gangrene; E78.00 Pure hypercholesterolemia, unspecified; E87.5 Hyperkalemia; F32.9 Major depressive disorder, single episode, unspecified; I25.5 Ischemic cardiomyopathy; I27.20 Pulmonary hypertension, unspecified; I34.0 Nonrheumatic mitral (valve) insufficiency; L93.0 Discoid lupus erythematosus; Z79.899 Other long term (current) drug therapy; Z82.41 Family history of sudden cardiac death; Z86.79 Personal history of other diseases of the circulatory system; Z87.891 Personal history of nicotine dependence; Z95.5 Presence of coronary angioplasty implant and graft; Z95.810 Presence of automatic (implantable) cardiac defibrillator; Z99.81 Dependence on supplemental oxygen; Z79.82 Long term (current) use of aspirin; Z91.19 Patient's noncompliance with other medical treatment and regimen
CPT/HCPCS: 36415; 36600; 71045; 80048; 80061; 82375; 82550; 82553; 82805; 83605; 83735; 83880; 84100; 84145; 84443; 84484; 85379; 93005; 93306; 94640; 94644; 96365; 96367; 96375; 99291; C1893; C9113; J1200; J1644; J1956; J2543; J2920; J2930; J3490; J7040; J7050; J7512; J7611; J7620; Q0162; Q0163